=== PATIENT | male | born 1950 | race Caucasian/White ===

== ENCOUNTER 2022-09-12 13:55 | Inpatient (IN) ==
[2022-09-12] MEDS ORDERED: SODIUM CHLORIDE 0.9% 1000ML 1,000 ML IV STA (14:05)
[2022-09-12 14:32] LABS: Basophils # (auto) 0.07 K/uL (0-0.2); Basophils % (auto) 0.7 %; Eosinophils # (auto) 0.11 K/uL (0-0.50); Eosinophils % (auto) 1.1 %; Hematocrit (blood only) 44.8 % (42.0-52.0); Hemoglobin 15.5 g/dl (14.0-18.0); Immature Granulocytes # (auto) 0.07 K/uL (0.01-0.20); Immature Granulocytes % (auto) 0.7 %; Lymphocytes % (auto) 15.6 %; Mean Corpuscular Hemoglobin 31.3 pg (25.0-34.0); Mean Corpuscular Hgb Conc 34.6 g/dL (32.0-36.0); Mean Corpuscular Volume 90.5 fL (80.0-100.0); Mean Platelet Volume 9.5 fL (9.4-12.4); Monocytes # (auto) 1.27 K/uL (0.11-0.59); Monocytes % (auto) 12.4 %; Neutrophils # (auto) 7.11 K/uL (1.40-6.50); Neutrophils % (auto) 69.5 %; Platelet Count 421 K/uL (130-400); RDW Coefficient of Variation 13.4 % (11.5-14.5); RDW Standard Deviation 44.6 fL (36.4-46.3); Red Blood Count 4.95 M/uL (4.70-6.10); White Blood Count 10.23 K/ul (4.8-10.8)
--- NOTE | 2022-09-12 14:32 | Emergency Department Note ---
Impression & Plan Hypoxia, Tachycardia, URI (upper respiratory infection) ED Provider Note Provider: Chay Hammer MD DATE OF SERVICE: 09/12/2022 CHIEF COMPLAINT: Shortness of breath, cough, tachycardia HISTORY OF PRESENT ILLNESS: Patient is a 72-year-old gentleman past medical history of lung cancer status post lung resection in 2007 as well as a history of hypertension. States has a prior history of lung issues related to aging or exposure and distant history of smoking. Not on home oxygen. 10 days of illness with generalized fatigue, shortness of breath with mildly productive cough and decreased intake. Denies any significant chest pain. Denies travel. States a relative was recently ill. States some mild on and off fevers occasionally. Feeling short of breath [place] noted to be tachycardic and hypoxic and sent here for evaluation. has been using his nebulizers without real improvement of symptoms. PAST MEDICAL HISTORY: As noted above MEDICATIONS: Reviewed home medications SOCIAL HISTORY: Lives at home with , former smoker, PHYSICAL EXAM: GENERAL: alert and oriented in no acute distress on stretcher Head: normocephalic and atraumatic EYES: No injection, discharge or icterus. NECK: Trachea midline. Supple. ENT: Mucous membranes pink and moist. Pharynx without erythema or exudate LUNGS: Airway patent. No retractions. Breath sounds without significant wheeze But very diminished on the left HEART: Regular tachycardic rate and rhythm. No chest wall tenderness ABDOMEN: Soft and non-tender, without guarding or rebound. SKIN: Acyanotic, warm, dry, without rashes EXTREMITIES: Without swelling, tenderness or deformity NEUROLOGICAL: No focal deficits. No aphasia. No facial droop or slurred speech. Ambulatory. EK bpm sinus rhythm with PAC. No PVC. No acute ST segment elevation with a left axis and a QTc of 412. CONTINUOUS CARDIAC MONITORING: was ordered and showed a heart rate of 100s-120s bpm in sinus tachycardia Patient's laboratory studies and imaging reviewed. Differential includes Reactive airway disease, pneumonia, pneumothorax, COPD, CHF, infections, cardiac ischemia, pulmonary embolism, musculoskeletal, ga strointestinal, as well as other pathologies. IMPRESSION/MEDICAL DECISION MAKING: Patient hypoxic and tachycardic upon arrival. 10 days of illness. Does report he had a negative home COVID test without travel recently. Does not appear significantly swollen. History of lung issues related to age and large and distant smoking. On 2 L of oxygen to get above 90% at rest. Tachycardic. Given some IV fluid. Septic work-up including culture sent. We will complete a CT of the chest is able to evaluate for underlying PE as well as imaging to exclude pneumonia. Lactate does return not elevated which is reassuring. CBC with mild anemia and a white count of 10.2 which is a normal limits. Negative COVID flu and RSV testing. Chest x-ray per my review and radiology report shows opacification of the left lung consistent with prior lung surgery but no acute findings in the right lung or pneumothorax. No troponin elevation. No severe chemistry abnormalities with normal renal function. Procalcitonin not severely elevated. CTA of the chest with prior pneumonectomy with no evidence of pulmonary embolism per radiology. Emphysematous changes with possible developing pneumonitis in the right upper chest. Again not clearly a pneumonia. Given the short clinical history again the likelihood of a nonspecific viral illness is high causing increased oxygen requirement and shortness of breath given his compromised lungs at baseline. Given the oxygen requirement recommended further care here and the hospitalist was contacted. We will trial a DuoNeb to see if this may help with his symptoms. Discussed with the hospitalist for further care given his hypoxia and new oxygen requirement. Bio fire does returned negative. DIAGNOSIS: Hypoxia, tachycardia, URI DISPOSITION: Hospitalist will evaluate Patient was agreeable with this plan. 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 - uses loratidine and clobetasol cream Chronic obstructive pulmonary disease no Ox - uses inhalers as needed Degenerative disc disease cervical GERD (gastroesophageal reflux disease) Hyperlipidemia Hypertension Lung cancer CHEMO 05/30 - 09/2008 - Follows [facility] - q6m - recent scan 11/2021 showed spot on long - monitoring Memory loss Myocardial Infarction 1996 - severe chest pain [facility] no stents - no physical therapist aide Osteoarthritis Vertigo only in them qam - taking meclizine Surgical History History of cardiac cath 1996 post [place] - (NO STENTS) [facility] - no physical therapist aide History of colonoscopy History of esophagogastroduodenoscopy (EGD) History of herniorrhaphy History of lobectomy of lung LEFT LOBECTOMY 04/2008 d/t lung cancer History of tooth extraction Hx of vasectomy Family History Other No pertinent family history Social History Smoking Status: Former smoker Tobacco Type: Cigarettes Cigarettes Per Day: "WILL SMOKE A PUFF EVERY ONCE IN A WHILE WHEN I GET NERVOUS"; Second Hand Exposure: No; Hx Alcohol Use: No Hx Substance Use: No Preferred Language: Khmer Communication Ability: Effective 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 Beliefs That Will Affect Care: None Current Living Situation: Spouse Feels Safe at Home: Yes Assistive Devices: Glasses and Hearing Aid - Bilateral Allergies Allergies Allergy/AdvReac Type Severity Reaction Status Date / Time oxycodone Allergy Intermediate Hives Verified 09/12/22 18:46 shellfish derived Allergy Intermediate Hives Verified 09/12/22 18:46 shrimp Allergy Intermediate hives Verified 09/12/22 18:46 Home Meds Home Medications Medication Instructions Recorded Confirmed albuterol sulfate 90 mcg/actuation 2 puff inhalation QID PRN 04/01/18 09/12/22 aerosol inhaler (Ventolin HFA) Shortness Of Breath amlodipine 5 mg tablet 5 mg PO HS 04/01/18 09/12/22 atorvastatin 40 mg tablet 40 mg PO HS 04/01/18 09/12/22 lisinopril 5 mg tablet 5 mg PO HS 04/01/18 09/12/22 nitroglycerin 0.2 mg/hr 1 patch topical HS 04/01/18 09/12/22 transdermal 24 hour patch omeprazole 20 mg capsule,delayed 20 mg PO BID 04/01/18 09/12/22 release cholecalciferol (vitamin D3) 25 1,000 unit PO HS 09/21/18 09/12/22 mcg (1,000 unit) tablet (Vitamin D3) metoprolol tartrate 50 mg tablet 25 mg PO BID 09/21/18 09/12/22 meclizine 12.5 mg tablet 25 mg PO TID PRN Vertigo 01/17/22 09/12/22 trazodone 100 mg tablet 100 mg PO HS 01/17/22 09/12/22 ammonium lactate 12 % topical cream 1 applic topical HS 09/12/22 09/12/22 aspirin 81 mg tablet,delayed 81 mg PO DAILY 09/12/22 09/12/22 release benzonatate 100 mg capsule 200 mg PO TID 09/12/22 09/12/22 calcium carbonate 500 mg-vitamin 1 tab PO DAILY 09/12/22 09/12/22 D3 5 mcg (200 unit) tablet (Calcium 500 + D) clobetasol 0.05 % topical ointment 1 applic topical BID PRN dermatitis 09/12/22 09/12/22 cyclobenzaprine 10 mg tablet 10 mg PO HS PRN Muscle Pain 09/12/22 09/12/22 diclofenac sodium 1 % topical gel 2 g topical TID PRN joint pain 09/12/22 09/12/22 fluticasone 500 mcg-salmeterol 50 1 inh inhalation BID 09/12/22 09/12/22 mcg/dose blistr powdr for inhalation guaifenesin 200 mg tablet 200 mg PO Q6 PRN cough/congestion 09/12/22 09/12/22 magnesium oxide 420 mg tablet 420 mg PO DAILY 09/12/22 09/12/22 naloxone 4 mg/actuation nasal spray 4 mg intranasal UD PRN accidental 09/12/22 09/12/22 overdose pregabalin 75 mg capsule See Rx Instructions .Route .COMPLEX 09/12/22 09/12/22 tiotropium bromide 2.5 2 puff inhalation DAILY 09/12/22 09/12/22 mcg/actuation mist for inhalation Results & Data (ED) Vital Signs Vital Signs - 24 hr 09/12/22 14:03 09/12/22 14:02 09/12/22 14:02 Temperature 37.3 C Temperature Source Oral Pulse Rate 117 H Pulse Rate [Right Brachial] Pulse Rate from SpO2 Sensor Pulse Rhythm [Right Brachial] Respiratory Rate 15 Respiratory Effort / Characteristics Non-Labored Spontaneous Non-Labored Spontaneous Respiratory Depth Normal Normal Respiratory Pattern Regular Blood Pressure 132/79 Blood Pressure [Right Arm] Blood Pressure Mean 96 Blood Pressure Mean [Right Arm] Pulse Oximetry 94 94 Oxygen Delivery Method Room Air Room Air Room Air Oxygen Flow Rate 0 Sepsis New/Unexplained Change in Mental Status No Sepsis Action Taken by Nursing No Action Required 09/12/22 14:02 09/12/22 14:37 09/12/22 14:07 Temperature 37.3 C Temperature Source Oral Pulse Rate 115 H 120 H Pulse Rate [Right Brachial] 120 H Pulse Rate from SpO2 Sensor 119 H Pulse Rhythm [Right Brachial] Regular Respiratory Rate 15 16 Respiratory Effort / Characteristics Non-Labored Spontaneous Respiratory Depth Normal Respiratory Pattern Regular Blood Pressure Blood Pressure [Right Arm] 132/79 Blood Pressure Mean Blood Pressure Mean [Right Arm] 96 Pulse Oximetry 95 94 Oxygen Delivery Method Room Air Oxygen Flow Rate Sepsis New/Unexplained Change in Mental Status Sepsis Action Taken by Nursing 09/12/22 14:15 09/12/22 14:30 09/12/22 14:45 Temperature Temperature Source Pulse Rate 111 H 118 H 115 H Pulse Rate [Right Brachial] Pulse Rate from SpO2 Sensor 111 H 116 H 114 H Pulse Rhythm [Right Brachial] Respiratory Rate 16 14 16 Respiratory Effort / Characteristics Respiratory Depth Respiratory Pattern Blood Pressure Blood Pressure [Right Arm] Blood Pressure Mean Blood Pressure Mean [Right Arm] Pulse Oximetry 94 95 94 Oxygen Delivery Method Oxygen Flow Rate Sepsis New/Unexplained Change in Mental Status Sepsis Action Taken by Nursing 09/12/22 15:00 09/12/22 15:15 09/12/22 15:30 Temperature Temperature Source Pulse Rate 105 H 100 H 99 H Pulse Rate [Right Brachial] Pulse Rate from SpO2 Sensor 103 H 99 H 105 H Pulse Rhythm [Right Brachial] Respiratory Rate 16 16 15 Respiratory Effort / Characteristics Respiratory Depth Respiratory Pattern Blood Pressure Blood Pressure [Right Arm] Blood Pressure Mean Blood Pressure Mean [Right Arm] Pulse Oximetry 95 94 94 Oxygen Delivery Method Oxygen Flow Rate Sepsis New/Unexplained Change in Mental Status Sepsis Action Taken by Nursing 09/12/22 15:45 09/12/22 16:00 09/12/22 16:15 Temperature Temperature Source Pulse Rate 108 H 97 H 93 H Pulse Rate [Right Brachial] Pulse Rate from SpO2 Sensor 113 H 97 H 95 H Pulse Rhythm [Right Brachial] Respiratory Rate 15 16 17 Respiratory Effort / Characteristics Respiratory Depth Respiratory Pattern Blood Pressure Blood Pressure [Right Arm] Blood Pressure Mean Blood Pressure Mean [Right Arm] Pulse Oximetry 92 92 92 Oxygen Delivery Method Oxygen Flow Rate Sepsis New/Unexplained Change in Mental Status Sepsis Action Taken by Nursing 09/12/22 17:26 09/12/22 18:37 09/12/22 16:38 Temperature Temperature Source Pulse Rate 108 H Pulse Rate [Right Brachial] 110 H Pulse Rate from SpO2 Sensor 108 H Pulse Rhythm [Right Brachial] Respiratory Rate 15 Respiratory Effort / Characteristics Respiratory Depth Respiratory Pattern Blood Pressure Blood Pressure [Right Arm] Blood Pressure Mean Blood Pressure Mean [Right Arm] Pulse Oximetry 94 90 Oxygen Delivery Method Nasal Cannula Oxygen Flow Rate 2 Sepsis New/Unexplained Change in Mental Status Sepsis Action Taken by Nursing 09/12/22 16:45 09/12/22 17:00 09/12/22 17:30 Temperature Temperature Source Pulse Rate 107 H 82 122 H Pulse Rate [Right Brachial] Pulse Rate from SpO2 Sensor 104 H 116 H 109 H Pulse Rhythm [Right Brachial] Respiratory Rate 15 16 15 Respiratory Effort / Characteristics Respiratory Depth Respiratory Pattern Blood Pressure Blood Pressure [Right Arm] Blood Pressure Mean Blood Pressure Mean [Right Arm] Pulse Oximetry 92 95 93 Oxygen Delivery Method Oxygen Flow Rate Sepsis New/Unexplained Change in Mental Status Sepsis Action Taken by Nursing 09/12/22 17:45 09/12/22 18:00 09/12/22 18:15 Temperature Temperature Source Pulse Rate 110 H 108 H 106 H Pulse Rate [Right Brachial] Pulse Rate from SpO2 Sensor 112 H 104 H 107 H Pulse Rhythm [Right Brachial] Respiratory Rate 14 15 16 Respiratory Effort / Characteristics Respiratory Depth Respiratory Pattern Blood Pressure Blood Pressure [Right Arm] Blood Pressure Mean Blood Pressure Mean [Right Arm] Pulse Oximetry 91 91 98 Oxygen Delivery Method Oxygen Flow Rate Sepsis New/Unexplained Change in Mental Status Sepsis Action Taken by Nursing 09/12/22 18:30 09/12/22 18:45 09/12/22 19:00 Temperature Temperature Source Pulse Rate 108 H 105 H 111 H Pulse Rate [Right Brachial] Pulse Rate from SpO2 Sensor 109 H 106 H 110 H Pulse Rhythm [Right Brachial] Respiratory Rate 15 15 15 Respiratory Effort / Characteristics Respiratory Depth Respiratory Pattern Blood Pressure Blood Pressure [Right Arm] Blood Pressure Mean Blood Pressure Mean [Right Arm] Pulse Oximetry 90 92 91 Oxygen Delivery Method Oxygen Flow Rate Sepsis New/Unexplained Change in Mental Status Sepsis Action Taken by Nursing 09/12/22 19:15 Temperature Temperature Source Pulse Rate 107 H Pulse Rate [Right Brachial] Pulse Rate from SpO2 Sensor 99 H Pulse Rhythm [Right Brachial] Respiratory Rate 16 Respiratory Effort / Characteristics Respiratory Depth Respiratory Pattern Blood Pressure Blood Pressure [Right Arm] Blood Pressure Mean Blood Pressure Mean [Right Arm] Pulse Oximetry 90 Oxygen Delivery Method Oxygen Flow Rate Sepsis New/Unexplained Change in Mental Status Sepsis Action Taken by Nursing Laboratory Data 09/12/22 14:06 09/12/22 14:06 Lab Results 09/12/22 09/12/22 09/12/22 Range/Units 14:05 14:05 14:06 WBC 10.23 (4.8-10.8) K/ul RBC 4.95 (4.70-6.10) M/uL Hgb 15.5 (14.0-18.0) g/dl Hct 44.8 (42.0-52.0) % MCV 90.5 (80.0-100.0) fL MCH 31.3 (25.0-34.0) pg MCHC 34.6 (32.0-36.0) g/dL RDW Std Deviation 44.6 (36.4-46.3) fL RDW Coeff of Deng 13.4 (11.5-14.5) % Plt Count 421 H (130-400) K/uL MPV 9.5 (9.4-12.4) fL Immature Gran % (Auto) 0.7 % Neut % (Auto) 69.5 % Lymph % (Auto) 15.6 % Lipscomb % (Auto) 12.4 % Eos % (Auto) 1.1 % Baso % (Auto) 0.7 % Neut # (Auto) 7.11 H (1.40-6.50) K/uL Lymph # (Auto) 1.60 (1.2-3.4) K/uL Lipscomb # (Auto) 1.27 H (0.11-0.59) K/uL Eos # (Auto) 0.11 (0-0.50) K/uL Baso # (Auto) 0.07 (0-0.2) K/uL Immature Gran # (Auto) 0.07 (0.01-0.20) K/uL PT 11.3 (9.0-12.0) Seconds INR 1.1 (0.9-1.1) Sodium (136-145) mmol/L Potassium (3.5-5.1) mmol/L Chloride (98-107) mmol/L Carbon Dioxide (21-32) mmol/L Anion Gap (3-11) BUN (6-23) mg/dl Creatinine (0.6-1.4) mg/dl Est Cr Clr Drug Dosing Est GFR ( Amer) ml/min Est GFR (Non-Af Amer) ml/min BUN/Creatinine Ratio (10-20) Glucose (70-99(Fasting)) mg/dl Lactate (0.4-2.0) mmol/L Calcium (8.6-10.3) mg/dl Total Bilirubin (0.2-1.0) mg/dl AST (13-39) U/L ALT (7-52) U/L Alkaline Phosphatase (34-104) U/L Troponin I High Sens (0-20) pg/ml Total Protein (6.0-8.3) gm/dl Albumin (3.4-5.0) gm/dl Globulin (2.5-4.0) gm/dl Albumin/Globulin Ratio (0.9-2) Procalcitonin Cancelled Urine Color Urine Appearance (Clear) Urine pH (4.5-7.5) Ur Specific [place] (1.000-1.030) Urine Protein (Negative) Urine Glucose (UA) (Negative) Urine Ketones (Negative) Urine Blood (Negative) Urine Nitrite (Negative) Urine Bilirubin (Negative) Urine Urobilinogen (Negative) Ur Leukocyte Esterase (Negative) Adenovirus (PCR) (NotDetected) B. pertussis DNA (PCR) (NotDetected) B.parapertussis DNA PCR (NotDetected) C. pneumoniae DNA (PCR) (NotDetected) Coronavirus OC43 (PCR) (NotDetected) Coronavirus HKU1 (PCR) (NotDetected) Coronavirus 229E (PCR) (NotDetected) SARS-CoV-2 (PCR) (Negative) Coronavirus NL63 (PCR) (NotDetected) Human Metapneumovir PCR (NotDetected) Influenza Type A (PCR) (Neg) Influenza Type B (PCR) (Neg) M. pneumoniae (PCR) (NotDetected) Parainfluenza 1 (PCR) (NotDetected) Parainfluenza 2 (PCR) (NotDetected) Parainfluenza 3 (PCR) (NotDetected) Parainfluenza 4 (PCR) (NotDetected) RSV (RT-PCR) (Neg) RSV (PCR) (NotDetected) Entero/Rhino (PCR) (NotDetected) 09/12/22 09/12/22 09/12/22 Range/Units 14:06 14:06 14:18 WBC (4.8-10.8) K/ul RBC (4.70-6.10) M/uL Hgb (14.0-18.0) g/dl Hct (42.0-52.0) % MCV (80.0-100.0) fL MCH (25.0-34.0) pg MCHC (32.0-36.0) g/dL RDW Std Deviation (36.4-46.3) fL RDW Coeff of Deng (11.5-14.5) % Plt Count (130-400) K/uL MPV (9.4-12.4) fL Immature Gran % (Auto) % Neut % (Auto) % Lymph % (Auto) % [place]comb % (Auto) % Eos % (Auto) % Baso % (Auto) % Neut # (Auto) (1.40-6.50) K/uL Lymph # (Auto) (1.2-3.4) K/uL [place] # (Auto) (0.11-0.59) K/uL Eos # (Auto) (0-0.50) K/uL Baso # (Auto) (0-0.2) K/uL Immature Gran # (Auto) (0.01-0.20) K/uL PT (9.0-12.0) Seconds INR (0.9-1.1) Sodium 138 (136-145) mmol/L Potassium 3.8 (3.5-5.1) mmol/L Chloride 100 (98-107) mmol/L Carbon Dioxide 33 H (21-32) mmol/L Anion Gap 5 (3-11) BUN 8 (6-23) mg/dl Creatinine 0.68 (0.6-1.4) mg/dl Est Cr Clr Drug Dosing Not Reportable Est GFR ( Amer) 111.4 ml/min Est GFR (Non-Af Amer) 96.1 ml/min BUN/Creatinine Ratio 11.8 (10-20) Glucose 142 H (70-99(Fasting)) mg/dl Lactate 1.5 (0.4-2.0) mmol/L Calcium 9.1 (8.6-10.3) mg/dl Total Bilirubin 0.3 (0.2-1.0) mg/dl AST 21 (13-39) U/L ALT 14 (7-52) U/L Alkaline Phosphatase 95 (34-104) U/L Troponin I High Sens 9.6 (0-20) pg/ml Total Protein 5.9 L (6.0-8.3) gm/dl Albumin 3.0 L (3.4-5.0) gm/dl Globulin 2.9 (2.5-4.0) gm/dl Albumin/Globulin Ratio 1.0 (0.9-2) Procalcitonin Urine Color Urine Appearance (Clear) Urine pH (4.5-7.5) Ur Specific [place] (1.000-1.030) Urine Protein (Negative) Urine Glucose (UA) (Negative) Urine Ketones (Negative) Urine Blood (Negative) Urine Nitrite (Negative) Urine Bilirubin (Negative) Urine Urobilinogen (Negative) Ur Leukocyte Esterase (Negative) Adenovirus (PCR) (NotDetected) B. pertussis DNA (PCR) (NotDetected) B.parapertussis DNA PCR (NotDetected) C. pneumoniae DNA (PCR) (NotDetected) Coronavirus OC43 (PCR) (NotDetected) Coronavirus HKU1 (PCR) (NotDetected) Coronavirus 229E (PCR) (NotDetected) SARS-CoV-2 (PCR) NEGATIVE (Negative) Coronavirus NL63 (PCR) (NotDetected) Human Metapneumovir PCR (NotDetected) Influenza Type A (PCR) Negative (Neg) Influenza Type B (PCR) Negative (Neg) M. pneumoniae (PCR) (NotDetected) Parainfluenza 1 (PCR) (NotDetected) Parainfluenza 2 (PCR) (NotDetected) Parainfluenza 3 (PCR) (NotDetected) Parainfluenza 4 (PCR) (NotDetected) RSV (RT-PCR) Negative (Neg) RSV (PCR) (NotDetected) Entero/Rhino (PCR) (NotDetected) 09/12/22 09/12/22 09/12/22 Range/Units 14:53 17:23 18:10 WBC (4.8-10.8) K/ul RBC (4.70-6.10) M/uL Hgb (14.0-18.0) g/dl Hct (42.0-52.0) % MCV (80.0-100.0) fL MCH (25.0-34.0) pg MCHC (32.0-36.0) g/dL RDW Std Deviation (36.4-46.3) fL RDW Coeff of Deng (11.5-14.5) % Plt Count (130-400) K/uL MPV (9.4-12.4) fL Immature Gran % (Auto) % Neut % (Auto) % Lymph % (Auto) % Lipscomb % (Auto) % Eos % (Auto) % Baso % (Auto) % Neut # (Auto) (1.40-6.50) K/uL Lymph # (Auto) (1.2-3.4) K/uL [place]comb # (Auto) (0.11-0.59) K/uL Eos # (Auto) (0-0.50) K/uL Baso # (Auto) (0-0.2) K/uL Immature Gran # (Auto) (0.01-0.20) K/uL PT (9.0-12.0) Seconds INR (0.9-1.1) Sodium (136-145) mmol/L Potassium (3.5-5.1) mmol/L Chloride (98-107) mmol/L Carbon Dioxide (21-32) mmol/L Anion Gap (3-11) BUN (6-23) mg/dl Creatinine (0.6-1.4) mg/dl Est Cr Clr Drug Dosing Est GFR ( Amer) ml/min Est GFR (Non-Af Amer) ml/min BUN/Creatinine Ratio (10-20) Glucose (70-99(Fasting)) mg/dl Lactate (0.4-2.0) mmol/L Calcium (8.6-10.3) mg/dl Total Bilirubin (0.2-1.0) mg/dl AST (13-39) U/L ALT (7-52) U/L Alkaline Phosphatase (34-104) U/L Troponin I High Sens (0-20) pg/ml Total Protein (6.0-8.3) gm/dl Albumin (3.4-5.0) gm/dl Globulin (2.5-4.0) gm/dl Albumin/Globulin Ratio (0.9-2) Procalcitonin 0.06 Urine Color Yellow Urine Appearance Clear (Clear) Urine pH 7.5 (4.5-7.5) Ur Specific [place] 1.043 H (1.000-1.030) Urine Protein Negative (Negative) Urine Glucose (UA) Negative (Negative) Urine Ketones Negative (Negative) Urine Blood Negative (Negative) Urine Nitrite Negative (Negative) Urine Bilirubin Negative (Negative) Urine Urobilinogen Negative (Negative) Ur Leukocyte Esterase Negative (Negative) Adenovirus (PCR) Not Detected (NotDetected) B. pertussis DNA (PCR) Not Detected (NotDetected) B.parapertussis DNA PCR Not Detected (NotDetected) C. pneumoniae DNA (PCR) Not Detected (NotDetected) Coronavirus OC43 (PCR) Not Detected (NotDetected) Coronavirus HKU1 (PCR) Not Detected (NotDetected) Coronavirus 229E (PCR) Not Detected (NotDetected) SARS-CoV-2 (PCR) Not Detected (Negative) Coronavirus NL63 (PCR) Not Detected (NotDetected) Human Metapneumovir PCR Not Detected (NotDetected) Influenza Type A (PCR) Not Detected (Neg) Influenza Type B (PCR) Not Detected (Neg) M. pneumoniae (PCR) Not Detected (NotDetected) Parainfluenza 1 (PCR) Not Detected (NotDetected) Parainfluenza 2 (PCR) Not Detected (NotDetected) Parainfluenza 3 (PCR) Not Detected (NotDetected) Parainfluenza 4 (PCR) Not Detected (NotDetected) RSV (RT-PCR) (Neg) RSV (PCR) Not Detected (NotDetected) Entero/Rhino (PCR) Not Detected (NotDetected) Administered Medications Discontinued Medications Albuterol (Albut/Ipratrop 3mg/0.5mg Neb 3 Ml Vial) 3 ml NEB NOW STA; Protocol Stop: 09/12/22 17:57 Last Admin: 09/12/22 18:07 Dose: 3 ml Documented By: DAYNE Sodium Chloride (Nss 1000ml) 1,000 mls @ 999 mls/hr IV .Q1H1M STA Stop: 09/12/22 15:05 Last Infusion: 09/12/22 15:53 Dose: 0 mls/hr Documented By: Admin: 09/12/22 14:35 Dose: 999 mls/hr Documented By: ROCCO Ioversol (Optiray 320 500ml) 108 ml IV ONCE ONE Stop: 09/12/22 16:34 Last Admin: 09/12/22 16:34 Dose: 108 ml Documented By: VAISHALI Imaging Data Radiologist's Impression: Chest X-Ray 09/12/22 14:06 XR chest 1V portable HISTORY: Shortness of breath. COMPARISON: Chest 04/01/2018. FINDINGS: Complete opacification of the left hemithorax consistent with a prior left-sided pneumonectomy. This remains unchanged. This results in the left knee. No shift which is also unchanged. No right-sided pneumothorax. The right lung is clear. No evidence for pulmonary edema. No pleural effusions. IMPRESSION: Postsurgical changes consistent with prior left pneumonectomy. Otherwise, no acute process within the chest. ACT 112: Negative or not required by law. Electronically signed by: Dontae Corado M.D. 09/12/2022 2:41 PM Chest CTA 09/12/22 14:07 CHEST CTA for PULMONARY ARTERIES CT DOSE: 286.44 mGy.cm HISTORY: PE, hypoxia, tachy, hx lung ca TECHNIQUE: Multiaxial CT images of the chest were performed following the intravenous administration of contrast to evaluate the pulmonary arteries. Maximal intensity projection images were also obtained. A dose lowering technique was utilized adhering to the principles of ALARA. COMPARISON STUDY: Chest CTA 04/01/2018. FINDINGS: Limited views of the upper abdomen demonstrate a normal liver, spleen, and adrenal glands. Partially visualized right renal cysts are noted. Normal thyroid gland. Redemonstration of the postoperative changes consistent with a prior left pneumonectomy. There is residual fluid within the left hemithorax consistent with postoperative change. This remains unchanged. Left mediastinal shift is also unchanged. The heart is normal in size. Normal caliber esophagus. No mediastinal or hilar lymphadenopathy. No suspicious lytic or blastic osseous lesions. Postoperative changes again noted within the left ribs for prior left thoracotomy. Small amount of fluid within the distal left mainstem bronchus. Emphysema again noted within the right lung. Small focal density within the right upper lobe medially on image 235 which has slightly progressed. There are few subcentimeter right apical nodules measuring up to 4 mm. This is also slightly progressed in the interval. Right-sided bronchial wall thickening is again noted. No right-sided pneumothorax. Normal caliber thoracic aorta with no evidence for a dissection. Prior resection of the left main pulmonary artery. No filling defects within the right pulmonary arteries to suggest a pulmonary embolus. IMPRESSION: 1. Prior left pneumonectomy, unchanged. 2. No filling defects within the residual pulmonary arteries to suggest a pulmonary embolus. 3. Small patchy airspace opacity within the right upper lobe medially a few subcentimeter nodular densities within the right lung apex have progressed. This could represent a developing pneumonitis. [address] follow-up recommended to ensure resolution. 4. Emphysema again noted within the right lung. ACT 112: Negative or not required by law. Electronically signed by: Dontae Corado M.D. 09/12/2022 5:50 PM Discharge Plan Visit Data Chief Complaint: Shortness of Breath/Dyspnea Stated Complaint: HYPOXIA, TACHYCARDIA ED Provider: Chay Hammer Discharge Problem: Hypoxia, Tachycardia, URI (upper respiratory infection) Patient Disposition: Being Evaluated by Hospitalist Discharge Instructions Interventions: ED Discharge Assessment Last Done: 09/12/22 21:10 Forms Stand Alone Forms: [facility] Prescriptions Prescriptions: No Action atorvastatin 40 mg tablet 40 mg PO HS nitroglycerin 0.2 mg/hr patch 24 hour 1 patch Topical HS Rx Instructions: On at night and off in the morning amlodipine 5 mg tablet 5 mg PO HS omeprazole 20 mg capsule,delayed release(DR/EC) 20 mg PO BID lisinopril 5 mg tablet 5 mg PO HS albuterol sulfate [Ventolin HFA] 90 mcg/actuation Hfa Aerosol Inhaler 2 puff INHALATION QID PRN (Reason: Shortness Of Breath) cholecalciferol (vitamin D3) [Vitamin D3] 1,000 unit Tablet 1,000 unit PO HS metoprolol tartrate 50 mg Tablet 25 mg PO BID aspirin [Aspirin Low-Strength] 81 mg Tablet,Delayed Release (Dr/Ec) 81 mg PO DAILY benzonatate 100 mg capsule 200 mg PO TID ammonium lactate 12 % cream 1 applic TOPICAL HS Rx Instructions: apply to heels calcium carbonate-vitamin D3 [Calcium 500 + D] 500 mg-5 mcg (200 unit) Tablet 1 tab PO DAILY pregabalin 75 mg capsule See Rx Instructions .ROUTE .COMPLEX Rx Instructions: take 1 capsule(75 mg) orally in the morning and take 2 capsules (150 mg) in the evening cyclobenzaprine 10 mg tablet 10 mg PO HS PRN (Reason: Muscle Pain) clobetasol 0.05 % ointment 1 applic TOPICAL BID PRN (Reason: dermatitis) tiotropium bromide 2.5 mcg/actuation Mist 2 puff INHALATION DAILY naloxone 4 mg/actuation [place],Non-Aerosol 4 mg INTRANASAL UD PRN (Reason: accidental overdose) Rx Instructions: 1 spray in alternating nostrils once as needed guaifenesin 200 mg tablet 200 mg PO Q6 PRN (Reason: cough/congestion) magnesium oxide 420 mg tablet 420 mg PO DAILY fluticasone propion-salmeterol 500-50 mcg/dose Blister With Device 1 inh INHALATION BID diclofenac sodium 1 % Gel 2 g TOPICAL TID PRN (Reason: joint pain) Rx Instructions: apply to single elbow, wrist or hand; for hand includes palm/fingers/back of hand meclizine 12.5 mg Tablet 25 mg PO TID PRN (Reason: Vertigo) trazodone 100 mg Tablet 100 mg PO HS Referrals Referrals: Monserrat Israel PA-C [Primary Care Provider] -
--- NOTE | 2022-09-12 14:42 | XRay Report ---
XR chest 1V portable HISTORY: Shortness of breath. COMPARISON: Chest 04/01/2018. FINDINGS: Complete opacification of the left hemithorax consistent with a prior left-sided pneumonect yasmine. This remains unchanged. This results in the left knee. No shift which is also unchanged. No righ t-sided pneumothorax. The right lung is clear. No evidence for pulmonary edema. No pleural effusions. IMPRESSION: Postsurgical changes consistent with prior left pneumonectomy. Otherwise, no acute process within the chest. ACT 112: Negative or not required by law. Electronically signed by: Dontae Corado M.D. 09/12/2022 2:41 PM
[2022-09-12 15:20] LABS: INR 1.1 (0.9-1.1); Prothrombin Time 11.3 Seconds (9.0-12.0)
[2022-09-12 15:22] LABS: Influenza A virus by PCR Negative (Neg); Influenza B virus by PCR Negative (Neg); RSV by PCR Negative (Neg); SARS CoV2 RNA(COVID-19) Ceph NEGATIVE (Negative)
[2022-09-12 16:09] LABS: Troponin I High Sensitivity 9.6 pg/ml (0-20)
[2022-09-12 16:12] LABS: Anion Gap 5 (3-11); Bilirubin,Total 0.3 mg/dl (0.2-1.0); Calcium 9.1 mg/dl (8.6-10.3); Carbon Dioxide 33 mmol/L (21-32); Chloride 100 mmol/L (98-107); Potassium 3.8 mmol/L (3.5-5.1); Sodium 138 mmol/L (136-145)
[2022-09-12 16:18] LABS: Alanine Aminotransferase 14 U/L (7-52); Alkaline Phosphatase 95 U/L (34-104); Aspartate Aminotransferase 21 U/L (13-39); BUN Creatinine Ratio 11.8 (10-20); Blood Urea Nitrogen 8 mg/dl (6-23); Est GFR (African American) 111.4 ml/min; Est GFR (Non-African American) 96.1 ml/min; Globulin 2.9 gm/dl (2.5-4.0); Glucose 142 mg/dl (70-99(Fasting)); Total Protein 5.9 gm/dl (6.0-8.3)
[2022-09-12] MEDS ORDERED: OPTIRAY 320 500ml IV ONE (16:33)
--- NOTE | 2022-09-12 17:13 | Electrocardiogram Report ---
Test Reason : Blood Pressure : / mmHG Vent. Rate : 120 BPM Atrial Rate : 120 BPM P-R Int : 154 ms QRS Dur : 072 ms QT Int : 292 ms P-R-T Axes : 081 -47 040 degrees QTc Int : 412 ms Sinus tachycardia with Premature atrial complexes Left axis deviation possible Inferior infarct , age undetermined Poor R wave progression, consider anterior NV vs. lead placement vs. LVH Abnormal ECG When compared with ECG of 01-APR-2018 17:33, Premature atrial complexes are now Present Confirmed by Jose Cutler ([id number]) on 09/12/2022 5:13:18 PM Referred By: Monserrat Israel Confirmed By:Azam Cutler
[2022-09-12 17:50] LABS: Appearance Urine Clear (Clear); Bilirubin Urine Negative (Negative); Blood Urine Negative (Negative); Color Urine Yellow; Glucose Urine UA Negative (Negative); Ketones Urine Negative (Negative); Leukocyte Esterase Urine Negative (Negative); Nitrite Urine Negative (Negative); Protein Urine Negative (Negative); Specific Gravity Urine 1.043 (1.000-1.030); Urobilinogen Urine Negative (Negative); pH Urine 7.5 (4.5-7.5)
--- NOTE | 2022-09-12 17:52 | CT Scan Report ---
CHEST CTA for PULMONARY ARTERIES CT DOSE: 286.44 mGy.cm HISTORY: PE, hypoxia, tachy, hx lung ca TECHNIQUE: Multiaxial CT images of the chest were performed following the intravenous administration of contrast to evaluate the pulmonary arteries. Maximal intensity projection images were also obtaine d. A dose lowering technique was utilized adhering to the principles of ALARA. COMPARISON STUDY: Chest CTA 04/01/2018. FINDINGS: Limited views of the upper abdomen demonstrate a normal liver, spleen, and adrenal glands. Partially visualized right renal cysts are noted. Normal thyroid gland. Redemonstration of the postop erative changes consistent with a prior left pneumonectomy. There is residual fluid within the left h emithorax consistent with postoperative change. This remains unchanged. Left mediastinal shift is als o unchanged. The heart is normal in size. Normal caliber esophagus. No mediastinal or hilar lymphaden opathy. No suspicious lytic or blastic osseous lesions. Postoperative changes again noted within the left ribs for prior left thoracotomy. Small amount of fluid within the distal left mainstem bronchus. Emphysema again noted within the right lung. Small focal density within the right upper lobe mediall y on image 235 which has slightly progressed. There are few subcentimeter right apical nodules measur ing up to 4 mm. This is also slightly progressed in the interval. Right-sided bronchial wall thickeni ng is again noted. No right-sided pneumothorax. Normal caliber thoracic aorta with no evidence for a dissection. Prior resection of the left main pulmonary artery. No filling defects within the right pu lmonary arteries to suggest a pulmonary embolus. IMPRESSION: 1. Prior left pneumonectomy, unchanged. 2. No filling defects within the residual pulmonary arteries to suggest a pulmonary embolus. 3. Small patchy airspace opacity within the right upper lobe medially a few subcentimeter nodular den sities within the right lung apex have progressed. This could represent a developing pneumonitis. [address] [facility] chest CT follow-up recommended to ensure resolution. 4. Emphysema again noted within the right lung. ACT 112: Negative or not required by law. Electronically signed by: Dontae Corado M.D. 09/12/2022 5:50 PM
[2022-09-12] MEDS ORDERED: ALBUT/IPRATROP 3MG/0.5MG NEB 3 ML VIAL NEB STA (17:56)
--- NOTE | 2022-09-12 19:05 | History & Physical Report ---
Date of Service September 12, 2022 Assessment & Plan (1) Right upper lobe pneumonia: (2) Chronic obstructive pulmonary disease: (3) Acute electrocardiography changes: (4) Hypertension: Plan This is a 72 yr old M who has a significant PMH of COPD not on oxygen, agent orange exposure, hx of lung cancer s/p L lobectomy, HTN, HLD and other medical problems as below who presents to ED at referral of [facility] due to hypoxia. He sees the [facility] and was seen in clinic today and was found to be hypoxic and tachycardic so referred to ED. Patient has been experiencing lower URI symptoms for approximately 10 days now with productive purulent sputum. Although viral URI panel, COVID and RSV negative symptoms likely started as viral process and now evolving to bacterial. Acute hypoxic respiratory failure Pneumonia COPD without exacerbation hx of Lung ca s/p L lobectomy Admit to telemetry Chest CT: negative PE but worsened consolidation to RUL ? pneumonitis IV rocephin, oral azithromycin pulmonary toilet Nebs, incentive spirometer, flutter valve continue home inhalers EKG changes pt w/o acute chest pain, trop negative will cycle trop, repeat ecg in a.m. noted sinus tachycardia with PACs, possible inferior infarct and poor R wave progression. Previous EKG from 2018 did have T wave inversions in inferior leads and nonspecific T wave abnormality in anterior leads continue tele monitoring HTN continue amlodipine, lisinopril, metoprolol bp stable HLD continue statin DVT ppx: SQ lovenox FULL CODE PCP: [facility] Dispo: admit to tele A total of 75 minutes was spent with greater than 50% of that time personally viewing all current laboratory work and diagnostic imaging studies obtained in the ED. Additionally, I was able to view the patients past medication reconciliation and history with direct visualization in the patients chart. Included in the time above, a portion of that time was spent assessing the patient while discussing and collaborating with specialists, if necessary, and making medical decision making on treatment plan. All of the above was collaborated with Dr. Mehta. Please see addendum for further details. History of Present Illness Chief Complaint: Referred by [facility] due to hypoxia. Primary Care Provider: Monserrat Israel PA-C This is a 72 yr old M who has a significant PMH of COPD not on oxygen, agent orange exposure, hx of lung cancer s/p L lobectomy, HTN, HLD and other medical problems as below who presents to ED at referral of [facility] due to hypoxia. He sees the [facility] and was seen in clinic today and was found to be hypoxic and tachycardic so referred to ED. He complains of Cough x 10 days. Cough is productive and purulent. He generally feels feverish, chills, rhinorrhea, sinus congestion, and gets SOB with coughing. He has not taken his temperature to know of true fever. He denies BEAR, dizziness, lightheaded, chest pain, sob at rest, n/v/d, abd pain. Appetite has been reduced over last 10 days. He has positive sick contacts with great grandson who also had URI sx. In ED patient made hemodynamically stable but was hypoxic requiring 2 L of supplemental oxygen. His CBC and CMP was generally unremarkable. His bio fire, SARS-CoV-2 and RSV were negative. Chest CTA revealed prior left pneumonectomy, no filling defects concerning for pulmonary embolus, small patchy airspace opacity within the right upper lobe has progressed which could representing developing pneumonitis. Recommend 6-month CT chest follow-up to ensure resolution. Also noted is emphysema within the right lung. He received IV fluid and albuterol nebulizer treatment while in ED. Family members are at bedside. Allergies Allergy/AdvReac Type Severity Reaction Status Date / Time oxycodone Allergy Intermediate Hives Verified 09/12/22 18:46 shellfish derived Allergy Intermediate Hives Verified 09/12/22 18:46 shrimp Allergy Intermediate hives Verified 09/12/22 18:46 Home Medications Medication Instructions Recorded Confirmed Type albuterol sulfate 90 mcg/actuation 2 puff inhalation QID PRN 04/01/18 09/12/22 History aerosol inhaler (Ventolin HFA) Shortness Of Breath amlodipine 5 mg tablet 5 mg PO HS 04/01/18 09/12/22 History atorvastatin 40 mg tablet 40 mg PO HS 04/01/18 09/12/22 History lisinopril 5 mg tablet 5 mg PO HS 04/01/18 09/12/22 History nitroglycerin 0.2 mg/hr 1 patch topical HS 04/01/18 09/12/22 History transdermal 24 hour patch omeprazole 20 mg capsule,delayed 20 mg PO BID 04/01/18 09/12/22 History release cholecalciferol (vitamin D3) 25 1,000 unit PO HS 09/21/18 09/12/22 History mcg (1,000 unit) tablet (Vitamin D3) metoprolol tartrate 50 mg tablet 25 mg PO BID 09/21/18 09/12/22 History meclizine 12.5 mg tablet 25 mg PO TID PRN Vertigo 01/17/22 09/12/22 History trazodone 100 mg tablet 100 mg PO HS 01/17/22 09/12/22 History ammonium lactate 12 % topical cream 1 applic topical HS 09/12/22 09/12/22 History aspirin 81 mg tablet,delayed 81 mg PO DAILY 09/12/22 09/12/22 History release benzonatate 100 mg capsule 200 mg PO TID 09/12/22 09/12/22 History calcium carbonate 500 mg-vitamin 1 tab PO DAILY 09/12/22 09/12/22 History D3 5 mcg (200 unit) tablet (Calcium 500 + D) clobetasol 0.05 % topical ointment 1 applic topical BID PRN dermatitis 09/12/22 09/12/22 History cyclobenzaprine 10 mg tablet 10 mg PO HS PRN Muscle Pain 09/12/22 09/12/22 History diclofenac sodium 1 % topical gel 2 g topical TID PRN joint pain 09/12/22 09/12/22 History fluticasone 500 mcg-salmeterol 50 1 inh inhalation BID 09/12/22 09/12/22 History mcg/dose blistr powdr for inhalation guaifenesin 200 mg tablet 200 mg PO Q6 PRN cough/congestion 09/12/22 09/12/22 History magnesium oxide 420 mg tablet 420 mg PO DAILY 09/12/22 09/12/22 History naloxone 4 mg/actuation nasal spray 4 mg intranasal UD PRN accidental 09/12/22 09/12/22 History overdose pregabalin 75 mg capsule See Rx Instructions .Route .COMPLEX 09/12/22 09/12/22 History tiotropium bromide 2.5 2 puff inhalation DAILY 09/12/22 09/12/22 History mcg/actuation mist for inhalation Past Med/Surg History Medical History (Updated 09/12/22 @ 21:31 by Chay Hammer M.D.) 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 - uses loratidine and clobetasol cream Chronic obstructive pulmonary disease no Ox - uses inhalers as needed Degenerative disc disease cervical GERD (gastroesophageal reflux disease) Hyperlipidemia Hypertension Lung cancer CHEMO 05/30 - 09/2008 - Follows [facility] - q6m - recent scan 11/2021 showed spot on long - monitoring Memory loss Myocardial Infarction 1996 - severe chest pain - life lighted to [facility] - Cardiac Cath - no stents - 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 Osteoarthritis Vertigo only in them qam - taking meclizine Surgical History History of cardiac cath 1996 post NM - (NO STENTS) [facility] - 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 History of colonoscopy History of esophagogastroduodenoscopy (EGD) History of herniorrhaphy History of lobectomy of lung LEFT LOBECTOMY 04/2008 d/t lung cancer History of tooth extraction Hx of vasectomy Family History Other No pertinent family history Social History Smoking Status: Former smoker Tobacco Type: Cigarettes Cigarettes Per Day: "WILL SMOKE A PUFF EVERY ONCE IN A WHILE WHEN I GET NERVOUS"; Second Hand Exposure: No; Hx Alcohol Use: No Hx Substance Use: No Preferred Language: Setswana Communication Ability: Effective Bathhouse Keeper Required: No Beliefs That Will Affect Care: None Current Living Situation: Spouse Feels Safe at Home: Yes Assistive Devices: Glasses and Hearing Aid - Bilateral Review of Systems Review of Systems: All systems reviewed & are unremarkable except as noted in HPI & below Physical Exam Physical Exam: Please refer to Dr. Mehta addendum for physical exam findings. Results & Data Results & Data Vital Signs (Past 12 Hours) Vital Signs Temp Pulse Pulse Resp BP BP Pulse Ox 09/12/22 18:37 108 H 09/12/22 17:26 110 H 15 94 09/12/22 16:15 93 H 17 92 09/12/22 16:00 97 H 16 92 09/12/22 15:45 108 H 15 92 09/12/22 15:30 99 H 15 94 09/12/22 15:15 100 H 16 94 09/12/22 15:00 105 H 16 95 09/12/22 14:45 115 H 16 94 09/12/22 14:30 118 H 14 95 09/12/22 14:15 111 H 16 94 09/12/22 14:07 120 H 16 94 09/12/22 14:37 115 H 09/12/22 14:02 37.3 C 120 H 15 132/79 95 09/12/22 14:02 94 09/12/22 14:02 09/12/22 14:03 37.3 C 117 H 15 132/79 94 O2 Del Method O2 Flow Rate 09/12/22 18:37 09/12/22 17:26 Nasal Cannula 2 09/12/22 16:15 09/12/22 16:00 09/12/22 15:45 09/12/22 15:30 09/12/22 15:15 09/12/22 15:00 09/12/22 14:45 09/12/22 14:30 09/12/22 14:15 09/12/22 14:07 09/12/22 14:37 09/12/22 14:02 Room Air 09/12/22 14:02 Room Air 0 09/12/22 14:02 Room Air 09/12/22 14:03 Room Air Diagnostic Findings Chest X-Ray 09/12/22 14:06 XR chest 1V portable HISTORY: Shortness of breath. COMPARISON: Chest 04/01/2018. FINDINGS: Complete opacification of the left hemithorax consistent with a prior left-sided pneumonectomy. This remains unchanged. This results in the left knee. No shift which is also unchanged. No right-sided pneumothorax. The right lung is clear. No evidence for pulmonary edema. No pleural effusions. IMPRESSION: Postsurgical changes consistent with prior left pneumonectomy. Otherwise, no acute process within the chest. ACT 112: Negative or not required by law. Electronically signed by: Dontae Corado M.D. 09/12/2022 2:41 PM Chest CTA 09/12/22 14:07 CHEST CTA for PULMONARY ARTER[address] CT DOSE: 286.44 mGy.cm HISTORY: PE, hypoxia, tachy, hx lung ca TECHNIQUE: Multiaxial CT images of the chest were performed following the intravenous administration of contrast to evaluate the pulmonary arteries. Maximal intensity projection images were also obtained. A dose lowering technique was utilized adhering to the principles of ALARA. COMPARISON STUDY: Chest CTA 04/01/2018. FINDINGS: Limited views of the upper abdomen demonstrate a normal liver, spleen, and adrenal glands. Partially visualized right renal cysts are noted. Normal thyroid gland. Redemonstration of the postoperative changes consistent with a prior left pneumonectomy. There is residual fluid within the left hemithorax consistent with postoperative change. This remains unchanged. Left mediastinal shift is also unchanged. The heart is normal in size. Normal caliber esophagus. No mediastinal or hilar lymphadenopathy. No suspicious lytic or blastic osseous lesions. Postoperative changes again noted within the left ribs for prior left thoracotomy. Small amount of fluid within the distal left mainstem bronchus. Emphysema again noted within the right lung. Small focal density within the right upper lobe medially on image 235 which has slightly progressed. There are few subcentimeter right apical nodules measuring up to 4 mm. This is also slight ly progressed in the interval. Right-sided bronchial wall thickening is again noted. No right-sided pneumothorax. Normal caliber thoracic aorta with no evidence for a dissection. Prior resection of the left main pulmonary artery. No filling defects within the right pulmonary arteries to suggest a pulmonary embolus. IMPRESSION: 1. Prior left pneumonectomy, unchanged. 2. No filling defects within the residual pulmonary arteries to suggest a pulmonary embolus. 3. Small patchy airspace opacity within the right upper lobe medially a few subcentimeter nodular densities within the right lung apex have progressed. This could represent a developing pneumonitis. [address] follow-up recommended to ensure resolution. 4. Emphysema again noted within the right lung. ACT 112: Negative or not required by law. Electronically signed by: Dontae Corado M.D. 09/12/2022 5:50 PM Medications Administered Medication List Discontinued Medications Albuterol (Albut/Ipratrop 3mg/0.5mg Neb 3 Ml Vial) 3 ml NEB NOW STA; Protocol Stop: 09/12/22 17:57 Last Admin: 09/12/22 18:07 Dose: 3 ml Documented By: DAYNE Sodium Chloride (Nss 1000ml) 1,000 mls @ 999 mls/hr IV .Q1H1M STA Stop: 09/12/22 15:05 Last Infusion: 09/12/22 15:53 Dose: 0 mls/hr Documented By: Admin: 09/12/22 14:35 Dose: 999 mls/hr Documented By: ROCCO Ioversol (Optiray 320 500ml) 108 ml IV ONCE ONE Stop: 09/12/22 16:34 Last Admin: 09/12/22 16:34 Dose: 108 ml Documented By: VAISHALI ECG Rate (beats per minute): 120 Rhythm: sinus tachycardia Additional Comments: Poor R wave progression, PACs noted COVID-19 Results Results COVID-19 Adm Lab Results: RBC 4.95 M/uL (4.70-6.10) 09/12/22 WBC 10.23 K/ul (4.8-10.8) 09/12/22 Hgb 15.5 g/dl (14.0-18.0) 09/12/22 Hct 44.8 % (42.0-52.0) 09/12/22 Plt Count 421 K/uL (130-400) H 09/12/22 Neutrophils (%) (Auto) 69.5 % 09/12/22 Lymphocytes (%) (Auto) 15.6 % 09/12/22 Monocytes # (Auto) 1.27 K/uL (0.11-0.59) H 09/12/22 Eosinophils # (Auto) 0.11 K/uL (0-0.50) 09/12/22 Immature Granulocyte % (Auto) 0.7 % 09/12/22 Neutrophils # (Auto) 7.11 K/uL (1.40-6.50) H 09/12/22 Lymphocytes # (Auto) 1.60 K/uL (1.2-3.4) 09/12/22 Monocytes # (Auto) 1.27 K/uL (0.11-0.59) H 09/12/22 Eosinophils # (Auto) 0.11 K/uL (0-0.50) 09/12/22 Basophils # (Auto) 0.07 K/uL (0-0.2) 09/12/22 Immature Granulocyte # (Auto) 0.07 K/uL (0.01-0.20) 3 Na 138 mmol/L (136-145) 09/12/22 K 3.8 mmol/L (3.5-5.1) 09/12/22 Cl 100 mmol/L (98-107) 09/12/22 CO2 33 mmol/L (21-32) H 09/12/22 Anion Gap 5 (3-11) 09/12/22 BUN 8 mg/dl (6-23) 09/12/22 Creatinine 0.68 mg/dl (0.6-1.4) 09/12/22 BUN/Creatinine Ratio 11.8 (10-20) 09/12/22 Glucose Level 142 mg/dl (70-99(Fasting)) H 09/12/22 Ca 9.1 mg/dl (8.6-10.3) 09/12/22 Total Bilirubin 0.3 mg/dl (0.2-1.0) 09/12/22 AST/SGOT 21 U/L (13-39) 09/12/22 ALT/SGPT 14 U/L (7-52) 09/12/22 Alkaline Phosphatase 95 U/L (34-104) 09/12/22 Total Protein 5.9 gm/dl (6.0-8.3) L 09/12/22 Albumin 3.0 gm/dl (3.4-5.0) L 09/12/22 Globulin 2.9 gm/dl (2.5-4.0) 09/12/22 Albumin/Globulin Ratio 1.0 (0.9-2) 09/12/22 Procalcitonin 0.06 ng/ml (0-0.5) 09/12/22 INR 1.1 (0.9-1.1) 09/12/22 Adenovirus (PCR) Not Detected (NotDetected) 09/12/22 B. parapertussis DNA (PCR) Not Detected (NotDetected) 08/22 09/12 B. pertussis DNA (PCR) Not Detected (NotDetected) 09/12/22 C. pneumoniae DNA (PCR) Not Detected (NotDetected) 3 Coronavirus Type OC43 (PCR) Not Detected (NotDetected) Coronavirus Type HKU1 (PCR) Not Detected (NotDetected) Coronavirus Type 229E (PCR) Not Detected (NotDetected) COVID-19 PCR Not Detected (NotDetected) 09/12/22 Coronavirus Type NL63 (PCR) Not Detected (NotDetected) Human Metapneumovirus (PCR) Not Detected (NotDetected) Influenza Virus Type A (PCR) Not Detected (NotDetected) Influenza Virus Type B (PCR) Not Detected (NotDetected) M. pneumoniae (PCR) Not Detected (NotDetected) 09/12/22 Parainfluenza Type 1 (PCR) Not Detected (NotDetected) 08/22 09/12 Parainfluenza Type 2 (PCR) Not Detected (NotDetected) 08/22 09/12 Parainfluenza Type 3 (PCR) Not Detected (NotDetected) 08/22 09/12 Parainfluenza Type 4 (PCR) Not Detected (NotDetected) 08/22 09/12 RSV (PCR) Not Detected (NotDetected) 09/12/22 Enterovirus/Rhinovirus (PCR) Not Detected (NotDetected) Chest X-Ray 09/12/22 Code Status & VTE Plan Code Status FULL CODE Supervising Physician Co-Signing Physician Notes History and physical exam performed by me. History notable for 72-year-old man with history of COPD but not on oxygen, agent orange exposure, lung cancer status post left lobectomy, hypertension who was referred from his PCPs office at the [facility] to the hospital for hypoxia. Patient reports cough for the past 10 days, productive of greenish sputum. Cough is associated with nausea, shortness of breath and abdominal pain with coughing bouts Reported rhinorrhea and feeling feverish Reported chills and anorexia. Reported that sick contacts from family who had a cold. Was noted to be hypoxic in PCPs office and sent to the ER. On exam, General: Elderly man, no acute distress Eyes: PERRL, conjunctivae normal, not pale, anicteric sclerae, EOM intact bilaterally ENMT: External ear and nose normal, oropharynx normal Respiratory: Normal respiratory effort, no respiratory distress, on nasal cannula, +cough, diminished breath sounds, scattered rhonchi Cardiovascular: RRR S1 S2 Gastrointestinal (Abdomen): Abdomen is not distended, soft, non-tender to palpation, no guarding, no palpable hepatosplenomegaly, normal bowel sounds Musculoskeletal: No pedal edema Neurologic: Alert and oriented x 3, No focal weakness, sensation grossly intact Psychiatric: Euthymic affect Labs notable for platelet count of 421 Chest x-ray showed postsurgical changes with prior left pneumonectomy CT angio of the chest did not show any PE but noted a small patchy airspace opacity within the right upper lobe medially, diffuse subcentimeter nodular densities within the right lung apex has progressed which could represent a developing pneumonitis. Acute respiratory failure with hypoxia Pneumonia Continue oxygen supplementation Ceftriaxone azithromycin Give nebs Antitussives with guaifenesin scheduled and then as needed tessalon perrles EKG noted sinus tachycardia with PACs, possible inferior infarct and poor R wave progression. Previous EKG from 2018 did have T wave inversions in inferior leads and nonspecific T wave abnormality in anterior leads. We will get troponin and keep on telemetry. Continue home meds Other plans as detailed by Heaven Norwood PA-C
[2022-09-12 19:10] LABS: Adenovirus PCR Not Detected (NotDetected); Bordetella parapertussis PCR Not Detected (NotDetected); Bordetella pertussis PCR Not Detected (NotDetected); Chlamydia pneumoniae PCR Not Detected (NotDetected); Coronavirus 229E PCR Not Detected (NotDetected); Coronavirus CoV-2 (COVID19)PCR Not Detected (NotDetected); Coronavirus HKU1 PCR Not Detected (NotDetected); Coronavirus NL63 PCR Not Detected (NotDetected); Coronavirus OC43PCR Not Detected (NotDetected); Human Metapneumovirus PCR Not Detected (NotDetected); Influenza A PCR Not Detected (NotDetected); Influenza B PCR Not Detected (NotDetected); Mycoplasma pneumoniae PCR Not Detected (NotDetected); Parainfluenza Virus 1 PCR Not Detected (NotDetected); Parainfluenza Virus 2 PCR Not Detected (NotDetected); Parainfluenza Virus 3 PCR Not Detected (NotDetected); Parainfluenza Virus 4 PCR Not Detected (NotDetected); Respiratory Syncytial VirusPCR Not Detected (NotDetected); Rhinovirus/Enterovirus PCR Not Detected (NotDetected)
[2022-09-12] MEDS ORDERED: MAGNESIUM HYDROXIDE SUSP 30 ML UDC PO PRN (21:44)
[2022-09-12] MEDS ORDERED: ACETAMINOPHEN 325 MG TAB PO PRN (21:44)
[2022-09-12] MEDS ORDERED: FLUTICASONE/SALMETEROL (ADVAIR) 500/50 INH 14 PUFF INH SCH (21:44)
[2022-09-12] MEDS ORDERED: ONDANSETRON INJ 2 MG/ML 2 ML VIAL IV PRN (21:44)
[2022-09-12] MEDS ORDERED: ALUMINUM/MAGNESIUM SUSP 30 ML UDC PO PRN (21:44)
[2022-09-12] MEDS ORDERED: POLYETHYLENE (MIRALAX) 17 GM PACK PO PRN (21:44)
[2022-09-12] MEDS ORDERED: ALBUT/IPRATROP 3MG/0.5MG NEB 3 ML VIAL NEB PRN (22:00)
[2022-09-12] MEDS: FLUTICASONE/VILANTEROL 100/25MCG 14 PUFFS/INHALER INH SCH (22:33)
[2022-09-12] MEDS: guaiFENesin 600 MG TABCR PO SCH (22:41)
[2022-09-12] MEDS: METOPROLOL TARTRATE 25 MG TAB PO SCH (22:42)
[2022-09-12] MEDS: AZITHROMYCIN 250 MG TAB PO SCH (22:42)
[2022-09-12] MEDS: ATORVASTATIN 40 MG TAB PO SCH (22:43)
[2022-09-12] MEDS: lisinopril 5 MG TAB PO SCH (22:43)
[2022-09-12] MEDS: amLODIPine BESYLATE 5 MG TAB PO SCH (22:43)
[2022-09-12] MEDS: traZODone HCL 100 MG TAB PO SCH (22:44)
[2022-09-12] MEDS: NITROGLYCERIN 0.2 MG/HR PATCH TD SCH (22:45)
[2022-09-12] MEDS: PANTOprazole 40 MG TAB PO SCH (22:45)
[2022-09-12] MEDS: AMMONIUM LACTATE 12% LOTION 225 GM BTL EXT SCH (22:46)
[2022-09-12] MEDS: PREGABALIN 75 MG CAP PO SCH (22:49)
[2022-09-12] MEDS: BENZONATATE 100 MG CAPSULE PO PRN (22:49)
[2022-09-12] MEDS: cefTRIAXone SODIUM 2,000 MG in DEXTROSE 5% 50 ML IV SCH (22:50)
[2022-09-12] MEDS: CHOLECALCIFEROL 1,000 UNITS 25 MCG TAB PO SCH (22:53)
[2022-09-12] MEDS: ALBUTEROL 0.083% NEBU SOLN 3 ML VIAL NEB PRN (22:55)
[2022-09-12] MEDS: ALBUT/IPRATROP 3MG/0.5MG NEB 3 ML VIAL NEB SCH (22:55)
[2022-09-12] MEDS: ENOXAPARIN INJ 40 MG/0.4 ML SYR SQ SCH (23:39)
[2022-09-13] MEDS: ALBUT/IPRATROP 3MG/0.5MG NEB 3 ML VIAL NEB SCH ×2 (01:00→07:05)
[2022-09-13 03:13] LABS: Basophils # (auto) 0.08 K/uL (0-0.2); Basophils % (auto) 0.8 %; Eosinophils # (auto) 0.24 K/uL (0-0.50); Eosinophils % (auto) 2.4 %; Immature Granulocytes # (auto) 0.06 K/uL (0.01-0.20); Immature Granulocytes % (auto) 0.6 %; Lymphocytes # (auto) 1.79 K/uL (1.2-3.4); Lymphocytes % (auto) 17.8 %; Mean Corpuscular Hemoglobin 31.2 pg (25.0-34.0); Mean Corpuscular Hgb Conc 34.2 g/dL (32.0-36.0); Mean Corpuscular Volume 91.1 fL (80.0-100.0); Mean Platelet Volume 9.3 fL (9.4-12.4); Monocytes % (auto) 15.9 %; Neutrophils # (auto) 6.29 K/uL (1.40-6.50); Neutrophils % (auto) 62.5 %; Platelet Count 446 K/uL (130-400); RDW Coefficient of Variation 13.4 % (11.5-14.5); RDW Standard Deviation 45.3 fL (36.4-46.3); Red Blood Count 4.17 M/uL (4.70-6.10); White Blood Count 10.06 K/ul (4.8-10.8)
[2022-09-13 03:33] LABS: Albumin Level 2.8 gm/dl (3.4-5.0); BUN Creatinine Ratio 6.1 (10-20); Bilirubin,Total 0.3 mg/dl (0.2-1.0); Calcium 8.7 mg/dl (8.6-10.3); Est GFR (African American) 112.7 ml/min; Est GFR (Non-African American) 97.3 ml/min; Globulin 2.8 gm/dl (2.5-4.0); Magnesium 1.6 mg/dl (1.7-2.4); Potassium 3.7 mmol/L (3.5-5.1); Total Protein 5.6 gm/dl (6.0-8.3)
[2022-09-13] MEDS: CALCIUM 600MG + VIT D 400 IU TAB PO SCH (08:00)
[2022-09-13] MEDS: ASPIRIN 81 MG ECTAB PO SCH (08:00)
[2022-09-13] MEDS: MAGNESIUM OXIDE 400 MG TAB PO SCH (08:01)
[2022-09-13] MEDS: UMECLIDINIUM BROMIDE 62.5MCG/BLISTER 7 PUFFS/INHALER INH SCH (08:01)
[2022-09-13] MEDS: PANTOprazole 40 MG TAB PO SCH ×2 (08:01→22:14)
[2022-09-13] MEDS: METOPROLOL TARTRATE 25 MG TAB PO SCH ×2 (08:01→22:15)
[2022-09-13] MEDS: guaiFENesin 600 MG TABCR PO SCH ×2 (08:01→22:14)
[2022-09-13] MEDS: FLUTICASONE/VILANTEROL 100/25MCG 14 PUFFS/INHALER INH SCH (08:02)
[2022-09-13] MEDS: PREGABALIN 75 MG CAP PO SCH ×2 (08:07→22:13)
[2022-09-13] MEDS ORDERED: MAGNESIUM SULFATE / D5W 1 GM/100 ML BAG IV ONE (08:21)
[2022-09-13 08:35] LABS: Estimated Average Glucose 117 mg/dl; Hemoglobin A1C 5.7 % (4.5-5.6)
[2022-09-13] MEDS ORDERED: NON-FORMULARY MEDICATION (Tiotropium Bromide 2.5 mcg/actuation Mist) INH SCH (09:00)
--- NOTE | 2022-09-13 11:38 | Electrocardiogram Report ---
Test Reason : Blood Pressure : / mmHG Vent. Rate : 091 BPM Atrial Rate : 091 BPM P-R Int : 162 ms QRS Dur : 076 ms QT Int : 360 ms P-R-T Axes : 076 -26 030 degrees QTc Int : 442 ms Normal sinus rhythm Low voltage QRS Poor R wave progression, consider anterior SD vs. lead placement vs. LVH Borderline ECG When compared with ECG of 12-SEP-2022 14:01, Premature atrial complexes are no longer Present Criteria for Inferior infarct are no longer Present Nonspecific T wave abnormality has replaced inverted T waves in Anterior leads Confirmed by Jose Cutler ([id number]) on 09/13/2022 11:38:11 AM Referred By: Monserrat Israel Confirmed By:Azam Cutler
--- NOTE | 2022-09-13 17:01 | Hospitalist Progress Note ---
Date of Service September 13, 2022 Assessment & Plan (1) Right upper lobe pneumonia: (2) Chronic obstructive pulmonary disease: (3) Acute electrocardiography changes: (4) Hypertension: Plan This is a 72 yr old M who has a significant PMH of COPD not on oxygen, agent orange exposure, hx of lung cancer s/p L lobectomy, HTN, HLD and other medical problems as below who presents to ED at referral of [place] clinic due to hypoxia. He sees the [place] and was seen in clinic today and was found to be hypoxic and tachycardic so referred to ED. Patient has been experiencing lower URI symptoms for approximately 10 days now with productive purulent sputum. Although viral URI panel, COVID and RSV negative symptoms likely started as viral process and now evolving to bacterial. Acute hypoxic respiratory failure Pneumonia COPD without exacerbation hx of Lung ca s/p L lobectomy Chest CT: negative PE but worsened consolidation to RUL ? pneumonitis Currently on IV rocephin, oral azithromycin Continue pulmonary toilet, nebulizer treatment, incentive spirometer, flutter valve continue home inhalers Continue oxygen supplement We will consider two-step exercise on discharge EKG changes Troponin x3 negative. Previous EKG from 2018 did have T wave inversions in inferior leads and nonspecific T wave abnormality in anterior leads Denies any chest pain Continue monitor closely Hypomagnesemia Magnesium 1.6 Mag replaced Continue monitor electrolyte HTN continue amlodipine, lisinopril, metoprolol bp stable HLD continue statin DVT ppx: SQ lovenox FULL CODE Disposition We will discharge once medically stable Admission and Anticipated Discharge Date Admission Date: September 12, 2022 Subjective Patient was seen and evaluated for follow-up of shortness of breath Lying in bed no acute distress with at bedside Patient said his breathing improved Denies any chest pain, palpitation, dizziness,fever Review of Systems Review of Systems: All systems reviewed & are unremarkable except as noted in Subjective Physical Exam Physical Exam: General- No acute distress Head- atraumatic Eyes- PERRL, EOMI, ENT- oropharynx clear Neck- supple, no JVD Lungs- diminished BS Heart- regular rhythm; no murmur Abdomen- normal bowel sounds, soft, nontender Extremities- no calf tenderness Neuro- alert, oriented x 3; PERRL, EOMI; no facial palsy; no dysarthria Skin- warm & dry Results & Data Results & Data Vital Signs (Past 12 Hours) Vital Signs Temp Pulse Pulse Resp BP Pulse Ox O2 Del Method 09/13/22 16:16 98 H 09/13/22 16:09 36.6 C 107 H 21 113/75 91 Nasal Cannula 09/13/22 11:15 36.4 C L 87 20 109/71 91 Nasal Cannula 09/13/22 09:48 Nasal Cannula 09/13/22 07:58 36.7 C 111 H 18 121/69 92 Nasal Cannula 09/13/22 07:55 36.4 C L 114 H 20 111/70 91 Room Air 09/13/22 07:22 101 H 09/13/22 07:05 107 H 18 90 Nasal Cannula O2 Flow Rate 09/13/22 16:16 09/13/22 16:09 2 09/13/22 11:15 2 09/13/22 09:48 2 09/13/22 07:58 5 09/13/22 07:55 2 09/13/22 07:22 09/13/22 07:05 2
[2022-09-13] MEDS: NITROGLYCERIN 0.2 MG/HR PATCH TD SCH (22:14)
[2022-09-13] MEDS: lisinopril 5 MG TAB PO SCH (22:15)
[2022-09-13] MEDS: ATORVASTATIN 40 MG TAB PO SCH (22:15)
[2022-09-13] MEDS: amLODIPine BESYLATE 5 MG TAB PO SCH (22:15)
[2022-09-13] MEDS: traZODone HCL 100 MG TAB PO SCH (22:15)
[2022-09-13] MEDS: CHOLECALCIFEROL 1,000 UNITS 25 MCG TAB PO SCH (22:16)
[2022-09-13] MEDS: AMMONIUM LACTATE 12% LOTION 225 GM BTL EXT SCH (22:16)
[2022-09-13] MEDS: BENZONATATE 100 MG CAPSULE PO PRN (22:19)
[2022-09-13] MEDS: cefTRIAXone SODIUM 2,000 MG in DEXTROSE 5% 50 ML IV SCH (22:20)
[2022-09-13] MEDS: AZITHROMYCIN 250 MG TAB PO SCH (23:18)
[2022-09-13] MEDS: ENOXAPARIN INJ 40 MG/0.4 ML SYR SQ SCH (23:18)
[2022-09-14] MEDS ORDERED: guaiFENesin/CODEINE 100MG/10MG 5ML UDC PO STA (01:48)
[2022-09-14 06:24] LABS: BUN Creatinine Ratio 5.3 (10-20); Calcium 8.5 mg/dl (8.6-10.3); Creatinine Clr Calc Pharmacy 75.6 ml/min; Est GFR (Non-African American) 92.3 ml/min; Magnesium 1.7 mg/dl (1.7-2.4); Potassium 4.1 mmol/L (3.5-5.1)
[2022-09-14] MEDS: SODIUM CHLOR 7% 4 ML NEB NEB SCH ×2 (07:28→20:05)
[2022-09-14] MEDS: PANTOprazole 40 MG TAB PO SCH ×2 (07:54→21:04)
[2022-09-14] MEDS: METOPROLOL TARTRATE 25 MG TAB PO SCH ×2 (07:54→21:04)
[2022-09-14] MEDS: MAGNESIUM OXIDE 400 MG TAB PO SCH (07:54)
[2022-09-14] MEDS: CALCIUM 600MG + VIT D 400 IU TAB PO SCH (07:54)
[2022-09-14] MEDS: ASPIRIN 81 MG ECTAB PO SCH (07:55)
[2022-09-14] MEDS: FLUTICASONE/VILANTEROL 100/25MCG 14 PUFFS/INHALER INH SCH (07:55)
[2022-09-14] MEDS: guaiFENesin 600 MG TABCR PO SCH (07:55)
[2022-09-14] MEDS: UMECLIDINIUM BROMIDE 62.5MCG/BLISTER 7 PUFFS/INHALER INH SCH (07:55)
[2022-09-14] MEDS: PREGABALIN 75 MG CAP PO SCH ×2 (07:58→21:13)
[2022-09-14] MEDS: BENZONATATE 100 MG CAPSULE PO PRN (14:09)
[2022-09-14] MEDS ORDERED: guaiFENesin SUGAR FREE 200 MG/10 ML UDC PO PRN (14:35)
--- NOTE | 2022-09-14 17:38 | Hospitalist Progress Note ---
Date of Service September 14, 2022 Assessment & Plan (1) Right upper lobe pneumonia: (2) Chronic obstructive pulmonary disease: (3) Acute electrocardiography changes: (4) Hypertension: Plan This is a 72 yr old M who has a significant PMH of COPD not on oxygen, agent orange exposure, hx of lung cancer s/p L lobectomy, HTN, HLD and other medical problems as below who presents to ED at referral of [place] clinic due to hypoxia. He sees the [place] and was seen in clinic today and was found to be hypoxic and tachycardic so referred to ED. Patient has been experiencing lower URI symptoms for approximately 10 days now with productive purulent sputum. Although viral URI panel, COVID and RSV negative symptoms likely started as viral process and now evolving to bacterial. Acute hypoxic respiratory failure Pneumonia COPD without exacerbation hx of Lung ca s/p L lobectomy Chest CT: negative PE but worsened consolidation to RUL ? pneumonitis blood cx no growth sputum cx pending Currently on IV rocephin, oral azithromycin Continue pulmonary toilet, nebulizer treatment, incentive spirometer, flutter valve continue home inhalers Continue oxygen supplement We will consider two-step exercise on discharge EKG changes Troponin x3 negative. Previous EKG from 2018 did have T wave inversions in inferior leads and nonspecific T wave abnormality in anterior leads Denies any chest pain Continue monitor closely Hypomagnesemia Magnesium 1.7 Continue monitor electrolyte HTN continue amlodipine, lisinopril, metoprolol bp stable HLD continue statin DVT ppx: SQ lovenox FULL CODE Disposition We will discharge once medically stable Admission and Anticipated Discharge Date Admission Date: September 12, 2022 Subjective Patient was seen and examined for follow-up of shortness of breath Lying in bed no acute distress with at bedside He said that he started to bring some phlegm Denies any chest pain, palpitation, dizziness,fever Review of Systems Review of Systems: All systems reviewed & are unremarkable except as noted in Subjective Physical Exam Physical Exam: General- No acute distress Head- atraumatic Eyes- PERRL, EOMI, ENT- oropharynx clear Neck- supple, no JVD Lungs- diminished BS Heart- regular rhythm; no murmur Abdomen- normal bowel sounds, soft, nontender Extremities- no calf tenderness Neuro- alert, oriented x 3; PERRL, EOMI; no facial palsy; no dysarthria Skin- warm & dry Results & Data Results & Data Vital Signs (Past 12 Hours) Vital Signs Temp Pulse Pulse Resp BP Pulse Ox O2 Del Method 09/14/22 15:41 36.6 C 86 18 114/72 92 Nasal Cannula 09/14/22 12:43 91 Nasal Cannula 09/14/22 12:42 81 L Room Air 09/14/22 11:25 36.7 C 82 18 99/61 L 93 Nasal Cannula 09/14/22 10:44 93 Nasal Cannula 09/14/22 10:44 84 L Nasal Cannula 09/14/22 10:02 Nasal Cannula 09/14/22 08:22 36.4 C L 106 H 18 126/78 92 Nasal Cannula 09/14/22 07:29 108 H 18 93 Nasal Cannula 09/14/22 07:13 85 O2 Flow Rate 09/14/22 15:41 2 09/14/22 12:43 2 09/14/22 12:42 09/14/22 11:25 3 09/14/22 10:44 3 09/14/22 10:44 1 09/14/22 10:02 2 09/14/22 08:22 2 09/14/22 07:29 4 09/14/22 07:13
[2022-09-14] MEDS: guaiFENesin SUGAR FREE 200 MG/10 ML UDC PO SCH ×2 (19:21→22:39)
[2022-09-14] MEDS: NITROGLYCERIN 0.2 MG/HR PATCH TD SCH (21:03)
[2022-09-14] MEDS: AZITHROMYCIN 250 MG TAB PO SCH (21:03)
[2022-09-14] MEDS: lisinopril 5 MG TAB PO SCH (21:03)
[2022-09-14] MEDS: traZODone HCL 100 MG TAB PO SCH (21:05)
[2022-09-14] MEDS: amLODIPine BESYLATE 5 MG TAB PO SCH (21:05)
[2022-09-14] MEDS: ATORVASTATIN 40 MG TAB PO SCH (21:05)
[2022-09-14] MEDS: CHOLECALCIFEROL 1,000 UNITS 25 MCG TAB PO SCH (21:05)
[2022-09-14] MEDS: AMMONIUM LACTATE 12% LOTION 225 GM BTL EXT SCH (21:14)
[2022-09-14] MEDS: cefTRIAXone SODIUM 2,000 MG in DEXTROSE 5% 50 ML IV SCH (22:38)
[2022-09-14] MEDS: ENOXAPARIN INJ 40 MG/0.4 ML SYR SQ SCH (22:38)
[2022-09-15] MEDS: guaiFENesin SUGAR FREE 200 MG/10 ML UDC PO SCH ×4 (02:07→20:30)
[2022-09-15] MEDS: SODIUM CHLOR 7% 4 ML NEB NEB SCH ×2 (07:16→19:15)
[2022-09-15] MEDS: ASPIRIN 81 MG ECTAB PO SCH (08:17)
[2022-09-15] MEDS: UMECLIDINIUM BROMIDE 62.5MCG/BLISTER 7 PUFFS/INHALER INH SCH (08:18)
[2022-09-15] MEDS: CALCIUM 600MG + VIT D 400 IU TAB PO SCH (08:18)
[2022-09-15] MEDS: FLUTICASONE/VILANTEROL 100/25MCG 14 PUFFS/INHALER INH SCH (08:18)
[2022-09-15] MEDS: PANTOprazole 40 MG TAB PO SCH ×2 (08:18→20:29)
[2022-09-15] MEDS: PREGABALIN 75 MG CAP PO SCH ×2 (08:18→20:27)
[2022-09-15] MEDS: METOPROLOL TARTRATE 25 MG TAB PO SCH ×2 (08:18→20:27)
[2022-09-15] MEDS: MAGNESIUM OXIDE 400 MG TAB PO SCH (08:18)
[2022-09-15] MEDS ORDERED: predniSONE 20 MG TAB PO STA (10:49)
--- NOTE | 2022-09-15 16:49 | Hospitalist Progress Note ---
Date of Service September 15, 2022 Assessment & Plan (1) Right upper lobe pneumonia: (2) Chronic obstructive pulmonary disease: (3) Acute electrocardiography changes: (4) Hypertension: Plan This is a 72 yr old M who has a significant PMH of COPD not on oxygen, agent orange exposure, hx of lung cancer s/p L lobectomy, HTN, HLD and other medical problems as below who presents to ED at referral of [place] clinic due to hypoxia. He sees the [place] and was seen in clinic today and was found to be hypoxic and tachycardic so referred to ED. Patient has been experiencing lower URI symptoms for approximately 10 days now with productive purulent sputum. Although viral URI panel, COVID and RSV negative symptoms likely started as viral process and now evolving to bacterial. Acute hypoxic respiratory failure Pneumonia COPD without exacerbation hx of Lung ca s/p L lobectomy Chest CT: negative PE but worsened consolidation to RUL ? pneumonitis blood cx no growth sputum cx showed no growth Currently on IV rocephin, oral azithromycin Continue pulmonary toilet, nebulizer treatment, incentive spirometer, flutter valve continue home inhalers Will add prednisone 20mg and Mucomyst BID Continue oxygen supplement We will consider two-step exercise on discharge EKG changes Troponin x3 negative. Previous EKG from 2018 did have T wave inversions in inferior leads and nonspecific T wave abnormality in anterior leads Denies any chest pain Continue monitor closely Hypomagnesemia Magnesium 1.7 Continue monitor electrolyte HTN continue amlodipine, lisinopril, metoprolol bp stable HLD continue statin DVT ppx: SQ lovenox FULL CODE Disposition We will discharge once medically stable Admission and Anticipated Discharge Date Admission Date: September 12, 2022 Subjective Patient was seen and examined for follow-up of shortness of breath Lying in bed no acute distress He continues to require oxygen supplement He said that his oxygen saturation drops with minimal exertion Denies any chest pain, palpitation, dizziness,fever Review of Systems Review of Systems: All systems reviewed & are unremarkable except as noted in Subjective Physical Exam Physical Exam: General- No acute distress Head- atraumatic Eyes- PERRL, EOMI, ENT- oropharynx clear Neck- supple, no JVD Lungs- diminished BS Heart- regular rhythm; no murmur Abdomen- normal bowel sounds, soft, nontender Extremities- no calf tenderness Neuro- alert, oriented x 3; PERRL, EOMI; no facial palsy; no dysarthria Skin- warm & dry Results & Data Results & Data Vital Signs (Past 12 Hours) Vital Signs Temp Pulse Pulse Resp BP Pulse Ox O2 Del Method 09/15/22 15:19 36.4 C L 79 18 123/77 92 Nasal Cannula 09/15/22 12:11 Nasal Cannula 09/15/22 12:04 36.6 C 68 18 117/76 94 Nasal Cannula 09/15/22 08:08 36.5 C 112 H 18 108/71 92 Nasal Cannula 09/15/22 07:18 103 H 20 94 Nasal Cannula 09/15/22 06:58 93 H O2 Flow Rate 09/15/22 15:19 2 09/15/22 12:11 3 09/15/22 12:04 2 09/15/22 08:08 3 09/15/22 07:18 3 09/15/22 06:58
[2022-09-15] MEDS ORDERED: ACETYLCYSTEINE 10% INHAL SOLN 4 ML **DISPENSED BY RESP. INH SCH (17:00)
[2022-09-15] MEDS: ACETYLCYSTEINE 10% INHAL SOLN 4 ML **DISPENSED BY RESP. INH SCH (19:15)
[2022-09-15] MEDS: ENOXAPARIN INJ 40 MG/0.4 ML SYR SQ SCH (20:27)
[2022-09-15] MEDS: CHOLECALCIFEROL 1,000 UNITS 25 MCG TAB PO SCH (20:28)
[2022-09-15] MEDS: traZODone HCL 100 MG TAB PO SCH (20:28)
[2022-09-15] MEDS: AZITHROMYCIN 250 MG TAB PO SCH (20:29)
[2022-09-15] MEDS: lisinopril 5 MG TAB PO SCH (20:29)
[2022-09-15] MEDS: amLODIPine BESYLATE 5 MG TAB PO SCH (20:29)
[2022-09-15] MEDS: ATORVASTATIN 40 MG TAB PO SCH (20:29)
[2022-09-15] MEDS: cefTRIAXone SODIUM 2,000 MG in DEXTROSE 5% 50 ML IV SCH (20:30)
[2022-09-15] MEDS: AMMONIUM LACTATE 12% LOTION 225 GM BTL EXT SCH (20:30)
[2022-09-15] MEDS: NITROGLYCERIN 0.2 MG/HR PATCH TD SCH (21:28)
[2022-09-16] MEDS: guaiFENesin SUGAR FREE 200 MG/10 ML UDC PO SCH ×3 (02:25→14:47)
[2022-09-16 06:28] LABS: Creatinine Clr Calc Pharmacy 71.8 ml/min; Est GFR (African American) 104.7 ml/min; Est GFR (Non-African American) 90.3 ml/min
[2022-09-16] MEDS: ASPIRIN 81 MG ECTAB PO SCH (08:05)
[2022-09-16] MEDS: METOPROLOL TARTRATE 25 MG TAB PO SCH (08:06)
[2022-09-16] MEDS: MAGNESIUM OXIDE 400 MG TAB PO SCH (08:06)
[2022-09-16] MEDS: PANTOprazole 40 MG TAB PO SCH (08:06)
[2022-09-16] MEDS: FLUTICASONE/VILANTEROL 100/25MCG 14 PUFFS/INHALER INH SCH (08:06)
[2022-09-16] MEDS: CALCIUM 600MG + VIT D 400 IU TAB PO SCH (08:06)
[2022-09-16] MEDS: UMECLIDINIUM BROMIDE 62.5MCG/BLISTER 7 PUFFS/INHALER INH SCH (08:07)
[2022-09-16] MEDS: PREGABALIN 75 MG CAP PO SCH (08:12)
[2022-09-16] MEDS: SODIUM CHLOR 7% 4 ML NEB NEB SCH (08:20)
[2022-09-16] MEDS: ALBUTEROL 0.083% NEBU SOLN 3 ML VIAL NEB PRN (08:21)
[2022-09-16] MEDS: ACETYLCYSTEINE 10% INHAL SOLN 4 ML **DISPENSED BY RESP. INH SCH (08:21)
[2022-09-16] MEDS ORDERED: predniSONE 20 MG TAB PO SCH (09:00)
--- NOTE | 2022-09-16 15:38 | Discharge Summary ---
Date of Service September 16, 2022 Admission HPI Per Admitting Provider This is a 72 yr old M who has a significant PMH of COPD not on oxygen, agent orange exposure, hx of lung cancer s/p L lobectomy, HTN, HLD and other medical problems as below who presents to ED at referral of [place] clinic due to hypoxia. He sees the [place] and was seen in clinic today and was found to be hypoxic and tachycardic so referred to ED. He complains of Cough x 10 days. Cough is productive and purulent. He generally feels feverish, chills, rhinorrhea, sinus congestion, and gets SOB with coughing. He has not taken his temperature to know of true fever. He denies BEAR, dizziness, lightheaded, chest pain, sob at rest, n/v/d, abd pain. Appetite has been reduced over last 10 days. He has positive sick contacts with great grandson who also had URI sx. In ED patient made hemodynamically stable but was hypoxic requiring 2 L of supplemental oxygen. His CBC and CMP was generally unremarkable. His bio fire, SARS-CoV-2 and RSV were negative. Chest CTA revealed prior left pneumonectomy, no filling defects concerning for pulmonary embolus, small patchy airspace opacity within the right upper lobe has progressed which could representing developing pneumonitis. Recommend 6-month CT chest follow-up to ensure resolution. Also noted is emphysema within the right lung. He received IV fluid and albuterol nebulizer treatment while in ED. Family members are at bedside. Principal Diagnosis Acute hypoxic respiratory failure Pneumonia COPD without exacerbation Hypertension Dyslipidemia Discharge Exam General- No acute distress Head- atraumatic Eyes- PERRL, EOMI, ENT- oropharynx clear Neck- supple, no JVD Lungs- diminished BS Heart- regular rhythm; no murmur Abdomen- normal bowel sounds, soft, nontender Extremities- no calf tenderness Neuro- alert, oriented x 3; PERRL, EOMI; no facial palsy; no dysarthria Skin- warm & dry Discharge Data Allergies Allergy/AdvReac Type Severity Reaction Status Date / Time oxycodone Allergy Intermediate Hives Verified 09/12/22 18:46 shellfish derived Allergy Intermediate Hives Verified 09/12/22 18:46 shrimp Allergy Intermediate hives Verified 09/12/22 18:46 Consultations 09/12/22 18:31 ED Decision to Admit Stat Ordered Studies 09/12/22 14:07 CT angio chest PE protocol Stat Hospital Course (1) Right upper lobe pneumonia: (2) Chronic obstructive pulmonary disease: (3) Acute electrocardiography changes: (4) Hypertension: Plan This is a 72 yr old M who has a significant PMH of COPD not on oxygen, agent orange exposure, hx of lung cancer s/p L lobectomy, HTN, HLD and other medical problems as below who presents to ED at referral of [place] clinic due to hypoxia. He sees the [place] and was seen in clinic today and was found to be hypoxic and tachycardic so referred to ED. Patient has been experiencing lower URI symptoms for approximately 10 days now with productive purulent sputum. Although viral URI panel, COVID and RSV negative symptoms likely started as viral process and now evolving to bacterial. Acute hypoxic respiratory failure Pneumonia COPD without exacerbation hx of Lung ca s/p L lobectomy Chest CT: negative PE but worsened consolidation to RUL ? pneumonitis blood cx no growth sputum cx showed no growth Currently on IV rocephin, oral azithromycin Continue pulmonary toilet, nebulizer treatment, incentive spirometer, flutter valve continue home inhalers Will add prednisone 20mg and Mucomyst BID Continue oxygen supplement We will consider two-step exercise on discharge EKG changes Troponin x3 negative. Previous EKG from 2018 did have T wave inversions in inferior leads and nonspecific T wave abnormality in anterior leads Denies any chest pain Continue monitor closely Hypomagnesemia Magnesium 1.7 Continue monitor electrolyte HTN continue amlodipine, lisinopril, metoprolol bp stable HLD continue statin DVT ppx: SQ lovenox FULL CODE Disposition We will discharge once medically stable Total Time Total Time Spent Total Time Spent (In Minutes): 45 minutes Discharge Plan Discharge Items Patient Disposition: Home - Self-Care Reason For Visit: PNEUMONIA Discharge Diagnosis: Acute hypoxic respiratory failure Pneumonia COPD without exacerbation Hypertension Dyslipidemia Activity: Resume your previous activity Non-emergency contact: Primary Care Provider Call non-emergency contact if: you have any medication questions, your symptoms worsen and your temperature is above 101 Follow-up/Referrals: Monserrat Israel PA-C [Primary Care Provider] - Diet: Heart Healthy Addtl Attending Provider Instructions: Follow up with your primary care provider within 1 week Continue oxygen supplement with 2 liter nasal canula with ambulation Continue incentive spirometry and flutter valve Seek medical attention if your symptoms worsening Fall precaution Stand-Alone Forms: [facility] [employer] [place], Smoking Cessation Medications and DC Order Prescriptions: No Action atorvastatin 40 mg tablet 40 mg PO HS nitroglycerin 0.2 mg/hr patch 24 hour 1 patch Topical HS Rx Instructions: On at night and off in the morning amlodipine 5 mg tablet 5 mg PO HS omeprazole 20 mg capsule,delayed release(DR/EC) 20 mg PO BID lisinopril 5 mg tablet 5 mg PO HS albuterol sulfate [Ventolin HFA] 90 mcg/actuation Hfa Aerosol Inhaler 2 puff INHALATION QID PRN (Reason: Shortness Of Breath) cholecalciferol (vitamin D3) [Vitamin D3] 1,000 unit Tablet 1,000 unit PO HS metoprolol tartrate 50 mg Tablet 25 mg PO BID aspirin [Aspirin Low-Strength] 81 mg Tablet,Delayed Release (Dr/Ec) 81 mg PO DAILY benzonatate 100 mg capsule 200 mg PO TID ammonium lactate 12 % cream 1 applic TOPICAL HS Rx Instructions: apply to heels calcium carbonate-vitamin D3 [Calcium 500 + D] 500 mg-5 mcg (200 unit) Tablet 1 tab PO DAILY pregabalin 75 mg capsule See Rx Instructions .ROUTE .COMPLEX Rx Instructions: take 1 capsule(75 mg) orally in the morning and take 2 capsules (150 mg) in the evening cyclobenzaprine 10 mg tablet 10 mg PO HS PRN (Reason: Muscle Pain) clobetasol 0.05 % ointment 1 applic TOPICAL BID PRN (Reason: dermatitis) tiotropium bromide 2.5 mcg/actuation Mist 2 puff INHALATION DAILY naloxone 4 mg/actuation Cocoa,Non-Aerosol 4 mg INTRANASAL UD PRN (Reason: accidental overdose) Rx Instructions: 1 spray in alternating nostrils once as needed guaifenesin 200 mg tablet 200 mg PO Q6 PRN (Reason: cough/congestion) magnesium oxide 420 mg tablet 420 mg PO DAILY fluticasone propion-salmeterol 500-50 mcg/dose Blister With Device 1 inh INHALATION BID diclofenac sodium 1 % Gel 2 g TOPICAL TID PRN (Reason: joint pain) Rx Instructions: apply to single elbow, wrist or hand; for hand includes palm/fingers/back of hand meclizine 12.5 mg Tablet 25 mg PO TID PRN (Reason: Vertigo) trazodone 100 mg Tablet 100 mg PO HS Admission Data Admit Date/Time: 09/12/22 19:07 Attending Provider: Agnes Montgomery Admit Provider: Lucita Mehta I. Primary Care Provider: Monserrat Israel Other Providers: Lucita Mehta I. ; [facility]
== END 2022-09-16 16:51 | disposition home or self-care (01) | DRG 193 ==
LOC: ED 13:55 → 2N 19:07 → SUATTDRO 19:07 → 2N 21:10

== ENCOUNTER 2025-05-16 09:02 | Inpatient (IN) ==
--- NOTE | 2025-05-16 09:12 | Emergency Department Note ---
Impression & Plan Acute respiratory failure with hypoxia and hypercarbia, Elevated troponin, Influenza ED Provider Note Provider: Chay Hammer MD CHIEF COMPLAINT: Shortness of breath HISTORY OF PRESENT ILLNESS: Patient is a 75-year-old gentleman history of hypertension, agent order exposure, COPD not on oxygen status post left lung lobectomy presenting here today via ambulance from home. Over the last several days he has had some worsening shortness of breath. Overnight significantly worsened and called EMS. EMS report he was 64% on room air. Does not use oxygen normally. Did seem somewhat wheezy and given nebulizer x 2 as well as 125 mg of Solu-Medrol prior to arrival. Noted to be febrile with a temperature 101 Fahrenheit actually for EMS and given IV Tylenol. Much improved according to EMS. Patient denies any pain or fainting. He also reports he is feeling improved. PAST MEDICAL HISTORY: As noted above MEDICATIONS: Reviewed home medications SOCIAL HISTORY: Former smoker, PHYSICAL EXAM: GENERAL: alert and oriented in no acute distress on stretcher BiPAP mask in place Head: normocephalic and atraumatic EYES: No injection, discharge or icterus. PERRL, EOMI. NECK: Trachea midline. Supple. ENT: Mucous membranes pink and moist. LUNGS: Airway patent. No retractions. Breath sounds faint wheeze on the right, absent on the left HEART: Regular tachycardic rate and rhythm. No chest wall tenderness ABDOMEN: Soft and non-tender, without guarding or rebound. SKIN: Acyanotic, warm, dry, without rashes EXTREMITIES: Without swelling, tenderness or deformity NEUROLOGICAL: No focal deficits. No aphasia. No facial droop or slurred speech. EK bpm sinus tachycardia. No PVC or PAC. Some artifact but no clear acute ST segment elevation or depression left axis with a QTc of 431. CONTINUOUS CARDIAC MONITORING: was ordered and showed a heart rate of 100s-120s bpm in sinus tachycardia Patient's laboratory studies and imaging reviewed. Differential includes Reactive airway disease, pneumonia, pneumothorax, COPD, CHF, infections, cardiac ischemia, pulmonary embolism, musculoskeletal, gastrointestinal, as well as other pathologies. IMPRESSION/MEDICAL DECISION MAKING: Patient significant respite distress prior to arrival. Received nebulizers, Tylenol, and Solu-Medrol prior to arrival. BiPAP in addition to this seems to have significant improved him. Was able to try off BiPAP here initially. Will complete imaging of his lungs and given the significant history prickly the left lung surgery, CT angiogram of the chest was obtained. Respiratory viral panel and blood cultures and lactate are sent given the reported fever prior to arrival. Question if this is COPD versus fluid overload versus pneumonia/URI/bronchitis. Given the wheeze given some additional DuoNeb here. Does not seem that encephalopathic but will obtain VBG, BMP, lactate, blood cultures addition to basic blood work. Given the fever and his respiratory distress empirically covered with a dose of cefepime as well as azithromycin here with his underlying lung disease. VBG with a pH of 729 and CO2 of 79. This was taken at arrival. Appears clear at this time. Lactate not elevated. Procalcitonin not significantly elevated. Minimal leukocytosis of 11.5. Hemoglobin elevated 18.5. No severe electrolyte abnormality or renal dysfunction noted today. Troponin minimally elevated at 58.9 likely more demand. Respiratory viral panel again is sent. CT angiogram of the chest per radiology shows no PE. Inflammatory changes questioning infection but not clear pneumonia. Discussed with patient and findings recommendation for further care here at the hospital. Tamiflu ordered given his relative illness severity. Given a small IV fluid bolus of 500 mL normal saline but avoiding significant others to prevent fluid overload given reported history of some fluid overload in the past. Discussed with the hospitalist here. On reassessment seems to be fatigue and little more tachypneic and will place back on BiPAP. DIAGNOSIS: Acute hypoxic hypercapnic respiratory failure, COPD exacerbation, influenza DISPOSITION: Hospitalist will evaluate Patient was agreeable with this plan. Critical Care I have personally spent 59 minutes of critical care time in the direct management of this patient. This includes bedside care, interpretation of diagnostic studies, and testing, discussion with consultants, patient, and family members, and other required patient management activities. These 59 minutes is in excess of all separately billable procedures. 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 - breaks out more in summer - uses loratidine and clobetasol cream Vertigo only in them qam - taking meclizine Degenerative disc disease cervical Osteoarthritis GERD (gastroesophageal reflux disease) Memory loss Myocardial Infarction 1996 - severe chest pain - life lighted to [facility] - Cardiac Cath - no stents - 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 Hypertension Hyperlipidemia Chronic obstructive pulmonary disease no Ox - uses inhalers as needed Lung cancer CHEMO 05/30 - 09/2008 - Follows [facility] (formerly [facility]3] - q6m - recent scan 11/2021 showed spot on long - monitoring Surgical History Hx of vasectomy History of esophagogastroduodenoscopy (EGD) History of colonoscopy History of herniorrhaphy History of tooth extraction History of cardiac cath 1996 post [place] - (NO STENTS) [facility] - 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 History of lobectomy of lung LEFT LOBECTOMY 04/2008 d/t lung cancer Family History Other No pertinent family history Social History Smoking Status: Former smoker Tobacco Type: Cigarettes Cigarettes Per Day: "WILL SMOKE A PUFF EVERY ONCE IN A WHILE WHEN I GET NERVOUS"; Second Hand Exposure: No; Do You Dip or Chew Tobacco: No; Hx Alcohol Use: No Hx Substance Use: No Preferred Language: Spanish Communication Ability: Effective Trust Administrative Assistant Required: No Beliefs That Will Affect Care: None Current Living Situation: Spouse Feels Safe at Home: Yes Assistive Devices: Glasses Allergies Allergies Allergy/AdvReac Type Severity Reaction Status Date / Time oxycodone Allergy Intermediate Hives Verified 05/16/25 11:59 shellfish derived Allergy Intermediate Hives Verified 05/16/25 11:59 shrimp Allergy Intermediate hives Verified 05/16/25 11:59 Home Meds Home Medications Medication Instructions Recorded Confirmed albuterol sulfate 90 mcg/actuation 2 puff inhalation QID PRN 04/01/18 05/16/25 aerosol inhaler (Ventolin HFA) Shortness Of Breath lisinopril 5 mg tablet 5 mg PO HS 04/01/18 05/16/25 nitroglycerin 0.2 mg/hr 1 patch topical HS 04/01/18 05/16/25 transdermal 24 hour patch metoprolol tartrate 50 mg tablet 50 mg PO BID 09/21/18 05/16/25 aspirin 81 mg tablet,delayed 81 mg PO DAILY 09/12/22 05/16/25 release benzonatate 100 mg capsule 200 mg PO TID PRN Cough 09/12/22 05/16/25 calcium 500 mg (as 1 tab PO DAILY 09/12/22 05/16/25 carbonate)-vitamin D3 5 mcg (200 unit) tablet (Calcium 500 + D) fluticasone 500 mcg-salmeterol 50 1 inh inhalation BID 09/12/22 05/16/25 mcg/dose blistr powdr for inhalation guaifenesin 200 mg tablet 200 mg PO Q6 PRN cough/congestion 09/12/22 05/16/25 magnesium oxide 420 mg tablet 420 mg PO BID 09/12/22 05/16/25 tiotropium bromide 2.5 2 puff inhalation DAILY 09/12/22 05/16/25 mcg/actuation mist for inhalation atorvastatin 80 mg tablet 40 mg PO HS 05/16/25 05/16/25 carboxymethylcellulose sodium 0.5 1 drp ophthalmic (eye) TID 05/16/25 05/16/25 % eye drops carboxymethylcellulose sodium 1 % 1 drp ophthalmic (eye) HS 05/16/25 05/16/25 eye gel in a dropperette cyanocobalamin (vitamin B-12) 500 500 mcg PO DAILY 05/16/25 05/16/25 mcg tablet food supplemt, lactose-reduced 1 ea PO DAILY 05/16/25 05/16/25 methyl salicylate 15 %-menthol 10 1 applic topical TID PRN Pain 05/16/25 05/16/25 % topical cream (Muscle Rub) multivitamin with minerals 1 cap PO DAILY 05/16/25 05/16/25 pantoprazole 40 mg tablet,delayed 40 mg PO DAILY 05/16/25 05/16/25 release pregabalin 150 mg capsule 150 mg PO BID 05/16/25 05/16/25 Results & Data (ED) Vital Signs Vital Signs - 24 hr 05/16/25 09:10 05/16/25 09:26 05/16/25 09:29 Temperature 37.1 C Temperature Source Oral Pulse Rate 113 H 116 H Pulse Rate [Apical] 117 H Pulse Rhythm [Apical] Pulse Strength [Apical] Respiratory Rate 38 H 42 H Respiratory Effort / Characteristics Non-Labored Spontaneous Short of Breath Respiratory Depth Normal Respiratory Pattern Regular Blood Pressure 132/76 Blood Pressure [Left Arm] Blood Pressure Mean 94 Blood Pressure Mean [Left Arm] Blood Pressure Position Sitting Blood Pressure Position [Left Arm] Pulse Oximetry 98 87 L Oxygen Delivery Method Nebulizer Room Air Oxygen Flow Rate 8 Sepsis Recent Fever Within 48 Hours No Sepsis New/Unexplained Change in Mental Status No Sepsis Action Taken by Nursing Physician Notified 05/16/25 10:55 Temperature Temperature Source Pulse Rate Pulse Rate [Apical] 105 H Pulse Rhythm [Apical] Regular Pulse Strength [Apical] Normal Respiratory Rate 35 H Respiratory Effort / Characteristics Non-Labored Spontaneous Respiratory Depth Normal Respiratory Pattern Regular Blood Pressure Blood Pressure [Left Arm] 145/84 H Blood Pressure Mean Blood Pressure Mean [Left Arm] 104 Blood Pressure Position Blood Pressure Position [Left Arm] Sitting Pulse Oximetry 98 Oxygen Delivery Method Nasal Cannula Oxygen Flow Rate 4 Sepsis Recent Fever Within 48 Hours Sepsis New/Unexplained Change in Mental Status Sepsis Action Taken by Nursing Laboratory Data 05/16/25 09:17 05/16/25 09:17 Lab Results 05/16/25 05/16/25 05/16/25 Range/Units 08:59 09:15 09:17 WBC 11.54 H (4.8-10.8) K/ul RBC 6.00 (4.70-6.10) M/uL Hgb 18.5 H (14.0-18.0) g/dL POC Hgb (14.0-18.0) g/dl Hct 55.2 H (42.0-52.0) % POC Hct (42-52) % MCV 92.0 (80.0-100.0) fL MCH 30.8 (25.0-34.0) pg MCHC 33.5 (32.0-36.0) g/dL RDW Std Deviation 46.4 H (36.4-46.3) fL RDW Coeff of Deng 13.7 (11.5-14.5) % Plt Count 294 (130-400) K/uL MPV 9.9 (9.4-12.4) fL Immature Gran % (Auto) 0.3 % Neut % (Auto) 83.1 % Lymph % (Auto) 4.2 % [place] % (Auto) 10.8 % Eos % (Auto) 1.0 % Baso % (Auto) 0.6 % Neut # (Auto) 9.58 H (1.40-6.50) K/uL Lymph # (Auto) 0.49 L (1.20-3.40) K/uL [place] # (Auto) 1.25 H (0.11-0.59) K/uL Eos # (Auto) 0.11 (0.00-0.50) K/uL Baso # (Auto) 0.07 (0.00-0.20) K/uL Immature Gran # (Auto) 0.04 (0.01-0.20) K/uL PT 11.1 (9.0-12.0) Seconds INR 1.1 (0.9-1.1) APTT 27 (21-31) Seconds PTT Ratio 1.0 VBG pH 7.29 L (7.36-7.41) VBG pCO2 79 H (38-50) mmHg VBG pO2 36 mmHg VBG HCO3 38 mmol/L VBG O2 Saturation 61.2 % VBG Base Excess 8.3 mEq/L POC Sodium (135-144) mmol/L Sodium 136 (136-145) mmol/L POC Potassium (3.3-5.0) mmol/L Potassium 4.6 (3.5-5.1) mmol/L POC Chloride (101-112) mmol/L Chloride 95 L (98-107) mmol/L Carbon Dioxide 35 H (21-32) mmol/L POC Total CO2 (24-31) mmol/L Anion Gap 6 (3-11) POC Anion Gap (16-25) mmol/L POC BUN (7-18) mg/dl BUN 9 (6-23) mg/dl Creatinine 0.84 (0.6-1.4) mg/dl POC Creatinine (0.6-1.3) mg/dl Est Cr Clr Drug Dosing 64.5 ml/min eGFR 91.51 BUN/Creatinine Ratio 10.7 (10-20) Glucose 123 H (70-99(Fasting)) mg/dl POC Glucose (other) (70-99) mg/dl Lactate 1.5 (0.4-2.0) mmol/L Calcium 9.1 (8.6-10.3) mg/dl POC Ioniz Calcium Lien (1.12-1.32) mmol/l Magnesium 2.0 (1.7-2.4) mg/dl Total Bilirubin 0.6 (0.2-1.0) mg/dl AST 26 (13-39) U/L ALT 27 (7-52) U/L Alkaline Phosphatase 101 (34-104) U/L Troponin I High Sens 58.9 H* (0-20) pg/ml B-Natriuretic Peptide 126 H (0-100) pg/ml Total Protein 7.6 (6.0-8.3) gm/dl Albumin 4.2 (3.4-5.0) gm/dl Globulin 3.4 (2.5-4.0) gm/dl Albumin/Globulin Ratio 1.2 (0.9-2) Procalcitonin 0.17 (0-0.5) ng/ml Nasal Influ A H1 2008 PCR DETECTED A (NotDetected) Adenovirus (PCR) Not Detected (NotDetected) B. pertussis DNA (PCR) Not Detected (NotDetected) B.parapertussis DNA PCR Not Detected (NotDetected) C. pneumoniae DNA (PCR) Not Detected (NotDetected) Coronavirus OC43 (PCR) Not Detected (NotDetected) Coronavirus HKU1 (PCR) Not Detected (NotDetected) Coronavirus 229E (PCR) Not Detected (NotDetected) SARS-CoV-2 (PCR) Not Detected (NotDetected) Coronavirus NL63 (PCR) Not Detected (NotDetected) Human Metapneumovir PCR Not Detected (NotDetected) Influenza Type B (PCR) Not Detected (NotDetected) M. pneumoniae (PCR) Not Detected (NotDetected) Parainfluenza 1 (PCR) Not Detected (NotDetected) Parainfluenza 2 (PCR) Not Detected (NotDetected) Parainfluenza 3 (PCR) Not Detected (NotDetected) Parainfluenza 4 (PCR) Not Detected (NotDetected) RSV (PCR) Not Detected (NotDetected) Entero/Rhino (PCR) Not Detected (NotDetected) 11/24/25 11/24/25 Range/Units 09:30 11:08 WBC (4.8-10.8) K/ul RBC (4.70-6.10) M/uL Hgb (14.0-18.0) g/dL POC Hgb 19.4 H (14.0-18.0) g/dl Hct (42.0-52.0) % POC Hct 57 H (42-52) % MCV (80.0-100.0) fL MCH (25.0-34.0) pg MCHC (32.0-36.0) g/dL RDW Std Deviation (36.4-46.3) fL RDW Coeff of Deng (11.5-14.5) % Plt Count (130-400) K/uL MPV (9.4-12.4) fL Immature Gran % (Auto) % Neut % (Auto) % Lymph % (Auto) % [place] % (Auto) % Eos % (Auto) % Baso % (Auto) % Neut # (Auto) (1.40-6.50) K/uL Lymph # (Auto) (1.20-3.40) K/uL [place] # (Auto) (0.11-0.59) K/uL Eos # (Auto) (0.00-0.50) K/uL Baso # (Auto) (0.00-0.20) K/uL Immature Gran # (Auto) (0.01-0.20) K/uL PT (9.0-12.0) Seconds INR (0.9-1.1) APTT (21-31) Seconds PTT Ratio VBG pH (7.36-7.41) VBG pCO2 (38-50) mmHg VBG pO2 mmHg VBG HCO3 mmol/L VBG O2 Saturation % VBG Base Excess mEq/L POC Sodium 137 (135-144) mmol/L Sodium (136-145) mmol/L POC Potassium 4.6 (3.3-5.0) mmol/L Potassium (3.5-5.1) mmol/L POC Chloride 92 L (101-112) mmol/L Chloride (98-107) mmol/L Carbon Dioxide (21-32) mmol/L POC Total CO2 33 H (24-31) mmol/L Anion Gap (3-11) POC Anion Gap 17.0 (16-25) mmol/L POC BUN 11 (7-18) mg/dl BUN (6-23) mg/dl Creatinine (0.6-1.4) mg/dl POC Creatinine 0.9 (0.6-1.3) mg/dl Est Cr Clr Drug Dosing ml/min eGFR BUN/Creatinine Ratio (10-20) Glucose (70-99(Fasting)) mg/dl POC Glucose (other) 123 H (70-99) mg/dl Lactate (0.4-2.0) mmol/L Calcium (8.6-10.3) mg/dl POC Ioniz Calcium Lien 1.12 (1.12-1.32) mmol/l Magnesium (1.7-2.4) mg/dl Total Bilirubin (0.2-1.0) mg/dl AST (13-39) U/L ALT (7-52) U/L Alkaline Phosphatase (34-104) U/L Troponin I High Sens 90.8 H* D (0-20) pg/ml B-Natriuretic Peptide (0-100) pg/ml Total Protein (6.0-8.3) gm/dl Albumin (3.4-5.0) gm/dl Globulin (2.5-4.0) gm/dl Albumin/Globulin Ratio (0.9-2) Procalcitonin (0-0.5) ng/ml Nasal Influ A H1 2008 PCR (NotDetected) Adenovirus (PCR) (NotDetected) B. pertussis DNA (PCR) (NotDetected) B.parapertussis DNA PCR (NotDetected) C. pneumoniae DNA (PCR) (NotDetected) Coronavirus OC43 (PCR) (NotDetected) Coronavirus HKU1 (PCR) (NotDetected) Coronavirus 229E (PCR) (NotDetected) SARS-CoV-2 (PCR) (NotDetected) Coronavirus NL63 (PCR) (NotDetected) Human Metapneumovir PCR (NotDetected) Influenza Type B (PCR) (NotDetected) M. pneumoniae (PCR) (NotDetected) Parainfluenza 1 (PCR) (NotDetected) Parainfluenza 2 (PCR) (NotDetected) Parainfluenza 3 (PCR) (NotDetected) Parainfluenza 4 (PCR) (NotDetected) RSV (PCR) (NotDetected) Entero/Rhino (PCR) (NotDetected) Administered Medications Albuterol (Albut/Ipratrop 3mg/0.5mg Neb 3 Ml Vial) 3 ml NEB Q6R ALMITA; Protocol Stop: 06/15/25 12:59 Last Admin: 05/16/25 13:01 Dose: 3 ml Documented By: ALBA Miscellaneous (Remove Nitro-Dur Patch) 1 each N/A QAM ALMITA Stop: 06/15/25 12:14 Last Admin: 05/16/25 13:34 Dose: 1 each Documented By: DOMINIQUE Discontinued Medications Albuterol (Albut/Ipratrop 3mg/0.5mg Neb 3 Ml Vial) 12 ml NEB ONE ONE; Protocol Stop: 05/16/25 09:10 Last Admin: 05/16/25 09:15 Dose: 12 ml Documented By: BEAN Azithromycin (Azithromycin 250 Mg Tab) 500 mg PO NOW ONE Stop: 05/16/25 09:39 Last Admin: 05/16/25 10:18 Dose: 500 mg Documented By: DOMINIQUE Cefepime HCl (Maxipime 2000mg) 2,000 mg in 20 mls @ 5 mls/min IV NOW STA; Protocol Stop: 05/16/25 09:31 Last Admin: 05/16/25 10:19 Dose: 5 mls/min Documented By: DOMINIQUE Sodium Chloride (Nss) 500 mls @ 999 mls/hr IV .Q31M ONE Stop: 05/16/25 11:31 Last Infusion: 05/16/25 12:53 Dose: Infused Documented By: Admin: 05/16/25 11:04 Dose: 999 mls/hr Documented By: DOMINIQUE Ioversol (Optiray 320 125ml) 112 ml IV ONCE ONE Stop: 05/16/25 09:40 Last Admin: 05/16/25 09:40 Dose: 112 ml Documented By: MIGEL Lorazepam (Lorazepam 1 Mg/1 Ml Syr Ed Inj Use) 0.25 mg IV ONE STA Stop: 05/16/25 12:43 Last Admin: 05/16/25 12:49 Dose: 0.25 mg Documented By: DOMINIQUE Methylprednisolone (Methylprednisolone 125 Mg/2 Ml Vial) 60 mg IV NOW STA Stop: 05/16/25 11:24 Last Admin: 05/16/25 11:39 Dose: 60 mg Documented By: DOMINIQUE Nitroglycerin (Nitroglycerin 2% Ointment 30gm Tube) 1 inch EXT NOW STA Stop: 05/16/25 13:13 Last Admin: 05/16/25 13:30 Dose: 1 inch Documented By: DOMINIQUE Oseltamivir Phosphate (Oseltamivir Phosphate 75 Mg Cap) 75 mg PO NOW STA Stop: 05/16/25 10:50 Last Admin: 05/16/25 11:03 Dose: 75 mg Documented By: DOMINIQUE Imaging Data Radiologist's Impression: Chest CTA 05/16/25 08:59 CT angio chest PE protocol CT DOSE: 371.73 mGy.cm HISTORY: Dyspnea, hypoxia. TECHNIQUE: Multiple CTA images of the chest were obtained after the intravenous administration of 112 ml Optiray. Coronal and sagittal MIPS were obtained from the axial data set and were submitted for review. All measurements were obtained according to NASCET criteria. A dose lowering technique was utilized adhering to the principles of ALARA. COMPARISON STUDY: 09/12/2022 FINDINGS: Stable left pneumonectomy with stable postoperative fluid at the left hemithorax. Stable shift of the heart and mediastinum to the left with compensatory hyperexpansion of the right lung. There is motion artifact due to difficulty breath holding. There are multiple interval scattered reticular nodular opacities measuring up to 8 mm right upper lobe series 4 image 193. No lobar consolidation or pleural effusion. No pneumothorax. No enlarged adenopathy. No pericardial effusion. There are coronary artery calcifications. No thoracic aortic dissection or aneurysm. No pulmonary embolism seen. No acute osseous findings. IMPRESSION: 1. No pulmonary embolism seen. 2. Multiple interval scattered small reticular nodular opacities throughout the right lung likely represent infectious/inflammatory etiology. Recommend follow- up chest CT in 3 months to make sure that this resolves without underlying pulmonary nodule. ACT 112: Positive. There are findings on this exam that require communication between the performing entity and the patient following Patient Test Result Information Act ([place] Act 112) guidelines. The above report was generated using voice recognition software. It may contain grammatical, syntax or spelling errors. Electronically signed by: Rubin Flores M.D. 05/16/2025 10:20 AM Chest X-Ray 05/16/25 08:59 XR chest 1V portable CLINICAL HISTORY: Dyspnea COMPARISON STUDY: 09/12/2022 FINDINGS: Stable prior left pneumonectomy with complete opacification of the left hemithorax. Stable shift of the heart and mediastinum to the left with compensatory hyperexpansion of the right lung. The right lung shows no consolidation or pleural effusion. No pneumothorax. IMPRESSION: No acute findings. ACT 112: Negative or not required by law. Electronically signed by: Rubin Flores M.D. 05/16/2025 9:18 AM Discharge Plan Visit Data Chief Complaint: Respiratory Distress Stated Complaint: Respiratory Distress ED Provider: Chay Hammer Discharge Problem: Acute respiratory failure with hypoxia and hypercarbia, Elevated troponin, Influenza Patient Disposition: Being Evaluated by Hospitalist Condition: Serious Discharge Instructions Interventions: ED Discharge Assessment Last Done: 05/16/25 11:57
[2025-05-16] MEDS: ALBUT/IPRATROP 3MG/0.5MG NEB 3 ML VIAL NEB ONE (09:15)
--- NOTE | 2025-05-16 09:19 | XRay Report ---
XR chest 1V portable CLINICAL HISTORY: Dyspnea COMPARISON STUDY: 09/12/2022 FINDINGS: Stable prior left pneumonectomy with complete opacification of the left hemithorax. Stable shift of the heart and mediastinum to the left with compensatory hyperexpansion of the right lung. Th e right lung shows no consolidation or pleural effusion. No pneumothorax. IMPRESSION: No acute findings. ACT 112: Negative or not required by law. Electronically signed by: Rubin Flores M.D. 05/16/2025 9:18 AM
[2025-05-16 09:36] LABS: Base Excess VBG 8.3 mEq/L; HCO3 VBG 38 mmol/L; Oxygen Saturation VBG 61.2 %; PCO2 VBG 79 mmHg (38-50); PO2 VBG 36 mmHg; pH VBG 7.29 (7.36-7.41)
[2025-05-16] MEDS: OPTIRAY 320 125ml IV ONE (09:40)
[2025-05-16 09:41] LABS: Hematocrit (blood only) 55.2 % (42.0-52.0); Hemoglobin 18.5 g/dL (14.0-18.0); Immature Granulocytes # (auto) 0.04 K/uL (0.01-0.20); Immature Granulocytes % (auto) 0.3 %; Platelet Count 294 K/uL (130-400); White Blood Count 11.54 K/ul (4.8-10.8)
[2025-05-16 09:52] LABS: Mean Corpuscular Hemoglobin 30.8 pg (25.0-34.0); Mean Corpuscular Volume 92.0 fL (80.0-100.0); RDW Standard Deviation 46.4 fL (36.4-46.3); Red Blood Count 6.00 M/uL (4.70-6.10)
[2025-05-16 09:57] LABS: Alanine Aminotransferase 27.0 U/L (7-52); Albumin Globulin Ratio 1.2 (0.9-2); Albumin Level 4.2 gm/dl (3.4-5.0); Alkaline Phosphatase 101.0 U/L (34-104); Anion Gap 6.0 (3-11); Bilirubin,Total 0.6 mg/dl (0.2-1.0); Blood Urea Nitrogen 9.0 mg/dl (6-23); Calcium 9.1 mg/dl (8.6-10.3); Carbon Dioxide 35.0 mmol/L (21-32); Chloride 95.0 mmol/L (98-107); Creatinine Clr Calc Pharmacy 64.5 ml/min; Globulin 3.4 gm/dl (2.5-4.0); Glucose 123.0 mg/dl (70-99(Fasting)); Magnesium 2.0 mg/dl (1.7-2.4); Potassium 4.6 mmol/L (3.5-5.1); Sodium 136.0 mmol/L (136-145); Total Protein 7.6 gm/dl (6.0-8.3)
[2025-05-16 10:08] LABS: INR 1.1 (0.9-1.1); Partial Thromboplastin Time 27 Seconds (21-31); Prothrombin Time 11.1 Seconds (9.0-12.0)
[2025-05-16] MEDS: AZITHROMYCIN 250 MG TAB PO ONE (10:18)
[2025-05-16] MEDS: CEFEPIME 2000MG 2,000 MG/20 ML SYR IV STA (10:19)
--- NOTE | 2025-05-16 10:22 | CT Scan Report ---
CT angio chest PE protocol CT DOSE: 371.73 mGy.cm HISTORY: Dyspnea, hypoxia. TECHNIQUE: Multiple CTA images of the chest were obtained after the intravenous administration of 112 ml Optiray. Coronal and sagittal MIPS were obtained from the axial data set and were submitted for review. All measurements were obtained according to NASCET criteria. A dose lowering technique was u tilized adhering to the principles of ALARA. COMPARISON STUDY: 09/12/2022 FINDINGS: Stable left pneumonectomy with stable postoperative fluid at the left hemithorax. Stable sh ift of the heart and mediastinum to the left with compensatory hyperexpansion of the right lung. Ther e is motion artifact due to difficulty breath holding. There are multiple interval scattered reticula r nodular opacities measuring up to 8 mm right upper lobe series 4 image 193. No lobar consolidation or pleural effusion. No pneumothorax. No enlarged adenopathy. No pericardial effusion. There are tavia nary artery calcifications. No thoracic aortic dissection or aneurysm. No pulmonary embolism seen. No acute osseous findings. IMPRESSION: 1. No pulmonary embolism seen. 2. Multiple interval scattered small reticular nodular opacities throughout the right lung likely rep resent infectious/inflammatory etiology. Recommend follow-up chest CT in 3 months to make sure that t his resolves without underlying pulmonary nodule. ACT 112: Positive. There are findings on this exam that require communication between the performing entity and the patient following Patient Test Result Information Act ([place] Act 112) guidelines. The above report was generated using voice recognition software. It may contain grammatical, syntax o r spelling errors. Electronically signed by: Rubin Flores M.D. 05/16/2025 10:20 AM
[2025-05-16 10:39] LABS: Chlamydia pneumoniae PCR Not Detected (NotDetected); Coronavirus 229E PCR Not Detected (NotDetected); Coronavirus CoV-2 (COVID19)PCR Not Detected (NotDetected); Coronavirus HKU1 PCR Not Detected (NotDetected); Coronavirus NL63 PCR Not Detected (NotDetected); Coronavirus OC43PCR Not Detected (NotDetected); Human Metapneumovirus PCR Not Detected (NotDetected); Influenza A (H1 2009) PCR DETECTED (NotDetected); Parainfluenza Virus 1 PCR Not Detected (NotDetected); Parainfluenza Virus 2 PCR Not Detected (NotDetected); Parainfluenza Virus 3 PCR Not Detected (NotDetected); Parainfluenza Virus 4 PCR Not Detected (NotDetected); Respiratory Syncytial VirusPCR Not Detected (NotDetected); Rhinovirus/Enterovirus PCR Not Detected (NotDetected)
[2025-05-16] MEDS: OSELTAMIVIR PHOSPHATE 75 MG CAP PO STA (11:03)
[2025-05-16] MEDS: SODIUM CHLORIDE 0.9% 500 ML IV ONE (11:04)
--- NOTE | 2025-05-16 11:38 | History & Physical Report ---
Date of Service May 16, 2025 Assessment & Plan (1) Acute respiratory failure with hypoxia and hypercarbia: Plan: Has left pneumonectomy secondary to lung cancer COPD on right lung and now has influenza with swine flu COPD exacerbation - started on intravenous Solu-Medrol, Tamiflu and nebulized bronchodilator No evidence of pulmonary embolism and no consolidation doubt any pneumonia so antibiotic will not be given ABG showed hypercarbia and he was put on BiPAP as well Will admit him to med/telemetry unit and may need pulmonary evaluation Will get pulmonary consult He has been very distressed and could not tolerate BiPAP He was given very small dose of Ativan 0.25 mg His agitation decreased but again he could not continue continue with the BiPAP due to ongoing distress and restless Following that he was noted less responsive but is still talking to me and telling that he has been okay Repeat VBG showed CO2 level has gone up to 121 The case was discussed with manager account management and again with the patient and the family members The patient did not want to have any intubation and the family members do not want any intubation Plan is to continue BiPAP at this time and wait for the outcome Prognosis remains very poor Discussed with the family members in detail (2) Influenza: Plan: as above (3) Elevated troponin: Plan: Mildly elevated troponin likely secondary to a stress-induced Doubt any ACS Will cycle troponin (4) GERD (gastroesophageal reflux disease): Plan: Continue Protonix/PPI (5) Hypertension: Plan: Blood pressure remains on the upper side at 145/84 Will continue current medications to control blood pressure (6) Hyperlipidemia: (7) Chronic obstructive pulmonary disease: Plan: History of COPD on right lung Has been on nebs at home but no oxygen Has COPD exacerbation and treatment as above (8) Lung cancer: Plan: History of lung cancer and is status post left pneumonectomy DVT prophylaxis Subcu heparin CODE STATUS DNR/DNI History of Present Illness Chief Complaint: Cough with shortness of breath since this morning associated with dizziness Primary Care Provider: Monserrat Israel PA-C he is a 75-year-old male with significant past medical history of COPD not on any oxygen, agent orange exposure, history of lung cancer status post left pn eumonectomy, hypertension, hyperlipidemia apparently has been complaining of increasing shortness of breath since this morning associated with cough and fever. He denies any chest pain and/or palpitation, does not have any abdominal pain nausea and/or vomiting. Denies any problem with urine or bowel habit. He was noted to be hypoxic and requiring initially 4 L and then ABG showed increase in CO2 and he was put on BiPAP. He was positive for swine flu and started with Tamiflu on top of supportive medications and was admitted to medical telemetry unit for continuation of care. Allergies Allergy/AdvReac Type Severity Reaction Status Date / Time oxycodone Allergy Intermediate Hives Verified 05/16/25 11:59 shellfish derived Allergy Intermediate Hives Verified 05/16/25 11:59 shrimp Allergy Intermediate hives Verified 05/16/25 11:59 Home Medications Medication Instructions Recorded Confirmed Type albuterol sulfate 90 mcg/actuation 2 puff inhalation QID PRN 04/01/18 05/16/25 History aerosol inhaler (Ventolin HFA) Shortness Of Breath lisinopril 5 mg tablet 5 mg PO HS 04/01/18 05/16/25 History nitroglycerin 0.2 mg/hr 1 patch topical HS 04/01/18 05/16/25 History transdermal 24 hour patch metoprolol tartrate 50 mg tablet 50 mg PO BID 09/21/18 05/16/25 History aspirin 81 mg tablet,delayed 81 mg PO DAILY 09/12/22 05/16/25 History release benzonatate 100 mg capsule 200 mg PO TID PRN Cough 09/12/22 05/16/25 History calcium 500 mg (as 1 tab PO DAILY 09/12/22 05/16/25 History carbonate)-vitamin D3 5 mcg (200 unit) tablet (Calcium 500 + D) fluticasone 500 mcg-salmeterol 50 1 inh inhalation BID 09/12/22 05/16/25 History mcg/dose blistr powdr for inhalation guaifenesin 200 mg tablet 200 mg PO Q6 PRN cough/congestion 09/12/22 05/16/25 History magnesium oxide 420 mg tablet 420 mg PO BID 09/12/22 05/16/25 History tiotropium bromide 2.5 2 puff inhalation DAILY 09/12/22 05/16/25 History mcg/actuation mist for inhalation atorvastatin 80 mg tablet 40 mg PO HS 05/16/25 05/16/25 History carboxymethylcellulose sodium 0.5 1 drp ophthalmic (eye) TID 05/16/25 05/16/25 History % eye drops carboxymethylcellulose sodium 1 % 1 drp ophthalmic (eye) HS 05/16/25 05/16/25 History eye gel in a dropperette cyanocobalamin (vitamin B-12) 500 500 mcg PO DAILY 05/16/25 05/16/25 History mcg tablet food supplemt, lactose-reduced 1 ea PO DAILY 05/16/25 05/16/25 History methyl salicylate 15 %-menthol 10 1 applic topical TID PRN Pain 05/16/25 05/16/25 History % topical cream (Muscle Rub) multivitamin with minerals 1 cap PO DAILY 05/16/25 05/16/25 History pantoprazole 40 mg tablet,delayed 40 mg PO DAILY 05/16/25 05/16/25 History release pregabalin 150 mg capsule 150 mg PO BID 05/16/25 05/16/25 History Past Med/Surg History Problem List (Updated 05/16/25 @ 11:52 by Background Daemon) Influenza (Acute) Elevated troponin (Acute) Acute respiratory failure with hypoxia and hypercarbia (Acute) History of colon polyps Weight loss Encounter for pre-operative examination Bloody nose Encounter for pre-operative examination Screening for colorectal cancer Medical History (Updated 05/16/25 @ 11:52 by Background Daemon) Hypoxia Acute electrocardiography changes Right upper lobe pneumonia 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 - breaks out more in summer - uses loratidine and clobetasol cream Vertigo only in them qam - taking meclizine Degenerative disc disease cervical Osteoarthritis GERD (gastroesophageal reflux disease) Memory loss Myocardial Infarction 1996 - severe chest pain - life lighted to [facility] - Cardiac Cath - no stents - 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 Hypertension Hyperlipidemia Chronic obstructive pulmonary disease no Ox - uses inhalers as needed Lung cancer CHEMO 05/30 - 09/2008 - Follows [facility] - q6m - recent scan 11/2021 showed spot on long - monitoring Surgical History Hx of vasectomy History of esophagogastroduodenoscopy (EGD) History of colonoscopy History of herniorrhaphy History of tooth extraction History of cardiac cath 1996 post [place] - (NO STENTS) [facility] - 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 History of lobectomy of lung LEFT LOBECTOMY 04/2008 d/t lung cancer Family History Other No pertinent family history Social History Smoking Status: Former smoker Tobacco Type: Cigarettes Cigarettes Per Day: "WILL SMOKE A PUFF EVERY ONCE IN A WHILE WHEN I GET NERVOUS"; Second Hand Exposure: No; Do You Dip or Chew Tobacco: No; Hx Alcohol Use: No Hx Substance Use: No Preferred Language: Belarusian Communication Ability: Effective Deputy K 9 Required: No Beliefs That Will Affect Care: None Current Living Situation: Spouse Feels Safe at Home: Yes Assistive Devices: Glasses Review of Systems Review of Systems: all systems reviewed and are unremarkable except as noted below Physical Exam Physical Exam: Lying in bed with acute distress due to BiPAP and shortness of breath Constitutional: + ill appearing and average body habitus Eyes: PERRL, conjunctivae normal, anicteric sclerae ENMT: external ear and nose normal, oropharynx normal Neck: trachea midline, no thyromegaly Respiratory: + respiratory distress ( moderate to sev ere respiratory distress at rest) Auscultation: + breath sounds absent ( left lung due to pneumonectomy) and + diminished lung sounds ( The right side has decreased breath sound with wheezing) Cardiovascular: Rate/Rhythm: regular rate, regular rhythm and + tachycardic Heart Sounds: normal S1 and normal S2; no murmur Extremities: no edema Gastrointestinal (Abdomen): Inspection/Auscultation: normal bowel sounds; abdomen not distended Percussion/Palpation: abdomen soft; abdomen nontender Musculoskeletal: no acute arthritis involving any of the joint Neurologic: normal touch/pain/proprioception and moves all extremities; no focal motor deficits Lymphatic: no cervical or axillary lymphadenopathy Results & Data Results & Data Vital Signs (Past 12 Hours) Vital Signs Temp Pulse Pulse Resp BP BP Pulse Ox 05/16/25 10:55 105 H 35 H 145/84 H 98 05/16/25 09:29 116 H 05/16/25 09:26 117 H 42 H 87 L 05/16/25 09:10 37.1 C 113 H 38 H 132/76 98 O2 Del Method O2 Flow Rate 05/16/25 10:55 Nasal Cannula 4 05/16/25 09:29 05/16/25 09:26 Room Air 05/16/25 09:10 Nebulizer 8 Laboratory Results Short CBC 05/16/25 Range/Units 09:17 WBC 11.54 H (4.8-10.8) K/ul Hgb 18.5 H (14.0-18.0) g/dL Hct 55.2 H (42.0-52.0) % Plt Count 294 (130-400) K/uL BMP 05/16/25 09:17 Sodium 136 Potassium 4.6 Chloride 95 L Carbon Dioxide 35 H BUN 9 Creatinine 0.84 Glucose 123 H Calcium 9.1 Liver Function 05/16/25 Range/Units 09:17 Total Bilirubin 0.6 (0.2-1.0) mg/dl AST 26 (13-39) U/L ALT 27 (7-52) U/L Alkaline Phosphatase 101 (34-104) U/L Albumin 4.2 (3.4-5.0) gm/dl Medications Administered Current Inpatient Medications Heparin Sodium (Porcine) (Heparin Sod 5,000 Unit/0.5 Ml Vial) 5,000 units SQ Q12 ALMITA Stop: 06/15/25 20:59 Code Status & VTE Plan VTE Prophylaxis Plan VTE Prophylaxis will be ordered: Yes
[2025-05-16] MEDS ORDERED: CLOBETASOL PROPIONATE 0.05% OINT 15 GM TUBE EXT PRN (11:57)
[2025-05-16] MEDS ORDERED: DICLOFENAC SOD 1% GEL 100 GM TUBE EXT PRN (11:57)
[2025-05-16] MEDS ORDERED: CYCLOBENZAPRINE HCL 10 MG TAB PO PRN (11:57)
[2025-05-16] MEDS ORDERED: ALBUTEROL 0.083% NEBU SOLN 3 ML VIAL NEB PRN (11:57)
[2025-05-16] MEDS ORDERED: ALBUTEROL HFA 8 GM INHALER INH PRN (11:57)
[2025-05-16] MEDS ORDERED: TROLAMINE SALICYLATE 10% CRM 255 APPLN/85 GM TUBE EXT PRN (12:34)
[2025-05-16] MEDS: LORazepam 1 MG/1 ML SYR ED Inj Use IV STA (12:49)
--- NOTE | 2025-05-16 13:00 | Electrocardiogram Report ---
Test Reason : Blood Pressure : */* mmHG Vent. Rate : 121 BPM Atrial Rate : 121 BPM P-R Int : 162 ms QRS Dur : 68 ms QT Int : 304 ms P-R-T Axes : 68 -47 23 degrees QTcB Int : 431 ms Sinus tachycardia Possible Left atrial enlargement Left axis deviation Poor R wave progression, consider anterior DC vs. lead placement vs. LVH Low voltage QRS Abnormal ECG When compared with ECG of 13-Sep-2022 09:22, Inverted T waves have replaced nonspecific T wave abnormality in Anterior leads Confirmed by Jose Cutler ([id number]) on 05/16/2025 12:59:29 PM Referred By: REFERRED SELF Confirmed By: Jose Cutler
[2025-05-16] MEDS: ALBUT/IPRATROP 3MG/0.5MG NEB 3 ML VIAL NEB SCH (13:01)
[2025-05-16 13:30] LABS: Base Excess VBG 5.6 mEq/L; HCO3 VBG 39 mmol/L; Oxygen Saturation VBG 78.7 %; PCO2 VBG 121 mmHg (38-50); PO2 VBG 51 mmHg; pH VBG 7.12 (7.36-7.41)
[2025-05-16] MEDS: NITROGLYCERIN 2% OINTMENT 30GM TUBE EXT STA (13:30)
[2025-05-16] MEDS: REMOVE NITRO-DUR PATCH SCH (13:34)
[2025-05-16] MEDS ORDERED: BENZONATATE 100 MG CAPSULE PO SCH (14:00)
--- NOTE | 2025-05-16 14:54 | Communication Note ---
Date of Service: May 16, 2025 The patient was seen in medical telemetry unit at around 2:52 PM He is keeping the BiPAP and is more alert and nodding the head that he is feeling better Blood pressure and pulse have improved Strongly advised to continue BiPAP Discussed again in detail with the family members and answered all of their questions. DR Samuel Buck
--- NOTE | 2025-05-16 15:04 | Pulmonary Consultation ---
Date of Consultation May 16, 2025 Assessment & Plan (1) Influenza: (2) Acute respiratory failure with hypoxia and hypercarbia: (3) Chronic obstructive pulmonary disease: Plan Impression: 75-year-old male with prior history of lung cancer status postpneumonectomy admitted now with influenza and hypoxemic and hypercarbic respiratory failure. He failed an initial trial of noninvasive positive pressure ventilation and has been put back on BiPAP. He adamantly declines intubation mechanical ventilation and his family is in agreement. Recommendations: 1. Hypoxemic hypercarbic respiratory failure: Unclear how responsive the patient is going to be to noninvasive positive pressure ventilation but seems reasonable to continue to try until the patient refuses. He is tolerating it reasonably well currently. The only other option moving forward would be to pursue intubation mechanical ventilation which would be risky and potentially entail tracheostomy which the patient and family would like to avoid at all costs. This would result in a quality of life unacceptable to the patient. He is reiterated such on multiple occasions. 2. Advanced COPD: Continue bronchodilators in the form of nebulized budesonide and Perforomist. Patient is unable to tolerate dry powder inhaler currently and Breo will be discontinued 3. Influenza: Continue Tamiflu. Steroids relatively contraindicated for viral pneumonitis however given the lack of parenchymal abnormalities and the patient severe COPD, may be reasonable to continue with low-dose steroids for now. Overall the patient's prognosis is severely guarded. His family is aware and I made the patient aware that this may be a terminal event. They understand and express understanding. They are in agreement with the plan as outlined The patient is critically ill with a significant possibility of clinical decline and/or . A total of 40 minutes of critical care time were spent in evaluation management and coordination of care of this patient including discussion with the admitting hospitalist and discussion with the family History of Present Illness Attending Physician: Seymour Buck MD History of Present Illness Asked by hospitalist to assist in evaluation management this patient with hypoxemic hypercarbic respiratory failure and influenza. History is obtained from discussion with the patient as well as discussion with family members at the bedside. Patient is a 75-year-old male with a prior history of pneumonectomy over a decade ago. He is primarily followed through [facility] so we have minimal records available to review. His lung resection was performed back in [address] Mel[place] in [place]. 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 Does not appear that any adjuvant chemotherapy was administered and the patient is followed at the [facility]. He is intermittently used tobacco products since his surgery. He has not required supplemental oxygen. He had worsening shortness of breath over the last several days and EMS was summoned. The patient was profoundly hypoxemic on arrival. He was treated with steroids and bronchodilators by EMS and brought to the emergency room. He was febrile. Blood gas showed hypercarbia with a pCO2 in the 70s. He was placed on BiPAP and then weaned off. Follow-up blood gas demonstrated pCO2 that did increase to 112 and he was placed back on BiPAP. The patient and family declined intubation. The patient reportedly has a significant history of claustrophobia so his ability to remain compliant with BiPAP may be suspect. Despite application of noninvasive positive pressure ventilation, the patient continues to demonstrate tachypnea, and increased work of breathing. Allergies Allergy/AdvReac Type Severity Reaction Status Date / Time oxycodone Allergy Intermediate Hives Verified 05/16/25 11:59 shellfish derived Allergy Intermediate Hives Verified 05/16/25 11:59 shrimp Allergy Intermediate hives Verified 05/16/25 11:59 Home Medications Medication Instructions Recorded Confirmed Type albuterol sulfate 90 mcg/actuation 2 puff inhalation QID PRN 04/01/18 05/16/25 History aerosol inhaler (Ventolin HFA) Shortness Of Breath lisinopril 5 mg tablet 5 mg PO HS 04/01/18 05/16/25 History nitroglycerin 0.2 mg/hr 1 patch topical HS 04/01/18 05/16/25 History transdermal 24 hour patch metoprolol tartrate 50 mg tablet 50 mg PO BID 09/21/18 05/16/25 History aspirin 81 mg tablet,delayed 81 mg PO DAILY 09/12/22 05/16/25 History release benzonatate 100 mg capsule 200 mg PO TID PRN Cough 09/12/22 05/16/25 History calcium 500 mg (as 1 tab PO DAILY 09/12/22 05/16/25 History carbonate)-vitamin D3 5 mcg (200 unit) tablet (Calcium 500 + D) fluticasone 500 mcg-salmeterol 50 1 inh inhalation BID 09/12/22 05/16/25 History mcg/dose blistr powdr for inhalation guaifenesin 200 mg tablet 200 mg PO Q6 PRN cough/congestion 09/12/22 05/16/25 History magnesium oxide 420 mg tablet 420 mg PO BID 09/12/22 05/16/25 History tiotropium bromide 2.5 2 puff inhalation DAILY 09/12/22 05/16/25 History mcg/actuation mist for inhalation atorvastatin 80 mg tablet 40 mg PO HS 05/16/25 05/16/25 History carboxymethylcellulose sodium 0.5 1 drp ophthalmic (eye) TID 05/16/25 05/16/25 History % eye drops carboxymethylcellulose sodium 1 % 1 drp ophthalmic (eye) HS 05/16/25 05/16/25 History eye gel in a dropperette cyanocobalamin (vitamin B-12) 500 500 mcg PO DAILY 05/16/25 05/16/25 History mcg tablet food supplemt, lactose-reduced 1 ea PO DAILY 05/16/25 05/16/25 History methyl salicylate 15 %-menthol 10 1 applic topical TID PRN Pain 05/16/25 05/16/25 History % topical cream (Muscle Rub) multivitamin with minerals 1 cap PO DAILY 05/16/25 05/16/25 History pantoprazole 40 mg tablet,delayed 40 mg PO DAILY 05/16/25 05/16/25 History release pregabalin 150 mg capsule 150 mg PO BID 05/16/25 05/16/25 History Patient History Medical History (Updated 05/16/25 @ 11:52 by Background Daemon) Hypoxia Acute electrocardiography changes Right upper lobe pneumonia 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 - breaks out more in summer - uses loratidine and clobetasol cream Vertigo only in them qam - taking meclizine Degenerative disc disease cervical Osteoarthritis GERD (gastroesophageal reflux disease) Memory loss Myocardial Infarction 1996 - severe chest pain - life lighted to [facility] - Cardiac Cath - no stents - 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 Hypertension Hyperlipidemia Chronic obstructive pulmonary disease no Ox - uses inhalers as needed Lung cancer CHEMO 05/30 - 09/2008 - Follows [facility] - q6m - recent scan 11/2021 showed spot on long - monitoring Surgical History Hx of vasectomy History of esophagogastroduodenoscopy (EGD) History of colonoscopy History of herniorrhaphy History of tooth extraction History of cardiac cath 1996 post [facility] - (NO STENTS) [place] - 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 History of lobectomy of lung LEFT LOBECTOMY 04/2008 d/t lung cancer Family History Other No pertinent family history Social History Smoking Status: Former smoker Tobacco Type: Cigarettes Cigarettes Per Day: "WILL SMOKE A PUFF EVERY ONCE IN A WHILE WHEN I GET NERVOUS"; Second Hand Exposure: No; Do You Dip or Chew Tobacco: No; Hx Alcohol Use: No Hx Substance Use: No Preferred Language: Romanian Communication Ability: Effective It Support Engineer Required: No Beliefs That Will Affect Care: None Current Living Situation: Spouse Feels Safe at Home: Yes Assistive Devices: Glasses Review of Systems Review of Systems: Unobtainable due to respiratory distress and fullface BiPAP Physical Exam Physical Exam: Lying in bed with acute distress due to BiPAP and shortness of breath Constitutional: + ill appearing and average body habitus Eyes: PERRL, conjunctivae normal, anicteric sclerae ENMT: external ear and nose normal, oropharynx normal Neck: trachea midline, no thyromegaly Respiratory: + respiratory distress ( moderate to sev ere respiratory distress at rest) Auscultation: + breath sounds absent ( left lung due to pneumonectomy) and + diminished lung sounds (Breath sounds diminished) Cardiovascular: Rate/Rhythm: regular rate, regular rhythm and + tachycardic Heart Sounds: normal S1 and normal S2; no murmur Extremities: no edema Gastrointestinal (Abdomen): Inspection/Auscultation: normal bowel sounds; a bdomen not distended Percussion/Palpation: abdomen soft; abdomen nontender Musculoskeletal: no acute arthritis involving any of the joint Neurologic: moves all extremities; no focal motor deficits Lymphatic: no cervical or axillary lymphadenopathy Results & Data Results & Data Vital Signs (Past 12 Hours) Vital Signs Temp Pulse Pulse Resp BP BP Pulse Ox 05/16/25 14:00 106 H 33 H 128/87 96 05/16/25 13:01 113 H 25 H 98 05/16/25 13:01 112 H 26 H 98 05/16/25 12:00 121 H 28 H 184/112 H 96 05/16/25 10:55 105 H 35 H 145/84 H 98 05/16/25 09:29 116 H 05/16/25 09:26 117 H 42 H 87 L 05/16/25 09:10 37.1 C 113 H 38 H 132/76 98 O2 Del Method O2 Flow Rate FiO2 05/16/25 14:00 BiPAP 05/16/25 13:01 40 05/16/25 13:01 BiPAP 40 05/16/25 12:00 Nasal Cannula 3 05/16/25 10:55 Nasal Cannula 4 05/16/25 09:29 05/16/25 09:26 Room Air 05/16/25 09:10 Nebulizer 8 Critical Care Results & Data Vital Signs (Past 12 Hours) Vital Signs Temp Pulse Pulse Resp BP BP Pulse Ox 05/16/25 14:00 106 H 33 H 128/87 96 05/16/25 13:01 113 H 25 H 98 05/16/25 13:01 112 H 26 H 98 05/16/25 12:00 121 H 28 H 184/112 H 96 05/16/25 10:55 105 H 35 H 145/84 H 98 05/16/25 09:29 116 H 05/16/25 09:26 117 H 42 H 87 L 05/16/25 09:10 37.1 C 113 H 38 H 132/76 98 O2 Del Method O2 Flow Rate FiO2 05/16/25 14:00 BiPAP 05/16/25 13:01 40 05/16/25 13:01 BiPAP 40 05/16/25 12:00 Nasal Cannula 3 05/16/25 10:55 Nasal Cannula 4 05/16/25 09:29 05/16/25 09:26 Room Air 05/16/25 09:10 Nebulizer 8 Lab & Micro Results (Past 24 Hours) RBC 6.00 M/uL (4.70-6.10) 05/16/25 WBC 11.54 K/ul (4.8-10.8) H 05/16/25 Hgb 18.5 g/dL (14.0-18.0) H 05/16/25 Hct 55.2 % (42.0-52.0) H 05/16/25 MCV 92.0 fL (80.0-100.0) 05/16/25 MCH 30.8 pg (25.0-34.0) 05/16/25 MCHC 33.5 g/dL (32.0-36.0) 05/16/25 RDW Standard Deviation 46.4 fL (36.4-46.3) H 05/16/25 RDW Coefficient of Variation 13.7 % (11.5-14.5) 05/16/25 Plt Count 294 K/uL (130-400) 05/16/25 MPV 9.9 fL (9.4-12.4) 05/16/25 Neutrophils (%) (Auto) 83.1 % 05/16/25 Lymphocytes (%) (Auto) 4.2 % 05/16/25 Monocytes # (Auto) 1.25 K/uL (0.11-0.59) H 05/16/25 Eosinophils # (Auto) 0.11 K/uL (0.00-0.50) 05/16/25 Immature Granulocyte % (Auto) 0.3 % 05/16/25 Neutrophils # (Auto) 9.58 K/uL (1.40-6.50) H 05/16/25 Lymphocytes # (Auto) 0.49 K/uL (1.20-3.40) L 05/16/25 Monocytes # (Auto) 1.25 K/uL (0.11-0.59) H 05/16/25 Eosinophils # (Auto) 0.11 K/uL (0.00-0.50) 05/16/25 Basophils # (Auto) 0.07 K/uL (0.00-0.20) 05/16/25 Immature Granulocyte # (Auto) 0.04 K/uL (0.01-0.20) 5 Na 136 mmol/L (136-145) 05/16/25 K 4.6 mmol/L (3.5-5.1) 05/16/25 Cl 95 mmol/L (98-107) L 05/16/25 CO2 35 mmol/L (21-32) H 05/16/25 Anion Gap 6 (3-11) 05/16/25 BUN 9 mg/dl (6-23) 05/16/25 Creatinine 0.84 mg/dl (0.6-1.4) 05/16/25 BUN/Creatinine Ratio 10.7 (10-20) 05/16/25 Glu 123 mg/dl (70-99(Fasting)) H 05/16/25 Ca 9.1 mg/dl (8.6-10.3) 05/16/25 Total Bilirubin 0.6 mg/dl (0.2-1.0) 05/16/25 AST 26 U/L (13-39) 05/16/25 ALT 27 U/L (7-52) 05/16/25 Alkaline Phosphatase 101 U/L (34-104) 05/16/25 TP 7.6 gm/dl (6.0-8.3) 05/16/25 Albumin 4.2 gm/dl (3.4-5.0) 05/16/25 Globulin 3.4 gm/dl (2.5-4.0) 05/16/25 Albumin/Globulin Ratio 1.2 (0.9-2) 05/16/25 Mg 2.0 mg/dl (1.7-2.4) 05/16/25 09:17 Calcium Level 9.1 mg/dl (8.6-10.3) 05/16/25 09:17 Prothromb Time International Ratio 1.1 (0.9-1.1) 05/16/25 09:1 7 Venous Blood pH 7.12 (7.36-7.41) L 05/16/25 13:22 Venous Blood Partial Pressure CO2 121 mmHg (38-50) H 05/16/25 1 3:22 Venous Blood Partial Pressure O2 51 mmHg 05/16/25 13:22 Venous Blood HCO3 39 mmol/L 05/16/25 13:22 Venous Blood Base Excess 5.6 mEq/L 05/16/25 13:22 Venous Blood Oxygen Saturation 78.7 % 05/16/25 13:22 Diagnostic Findings (Past 24 Hours) Chest CTA 05/16/25 08:59 CT angio chest PE protocol CT DOSE: 371.73 mGy.cm HISTORY: Dyspnea, hypoxia. TECHNIQUE: Multiple CTA images of the chest were obtained after the intravenous administration of 112 ml Optiray. Coronal and sagittal MIPS were obtained from the axial data set and were submitted for review. All measurements were obtained according to NASCET criteria. A dose lowering technique was utilized adhering to the principles of ALARA. COMPARISON STUDY: 09/12/2022 FINDINGS: Stable left pneumonectomy with stable postoperative fluid at the left hemithorax. Stable shift of the heart and mediastinum to the left with compensatory hyperexpansion of the right lung. There is motion artifact due to difficulty breath holding. There are multiple interval scattered reticular nodular opacities measuring up to 8 mm right upper lobe series 4 image 193. No lobar consolidation or pleural effusion. No pneumothorax. No enlarged adenopathy. No pericardial effusion. There are coronary artery calcifications. No thoracic aortic dissection or aneurysm. No pulmonary embolism seen. No acute osseous findings. IMPRESSION: 1. No pulmonary embolism seen. 2. Multiple interval scattered small reticular nodular opacities throughout the right lung likely represent infectious/inflammatory etiology. Recommend follow- up chest CT in 3 months to make sure that this resolves without underlying pulmonary nodule. ACT 112: Positive. There are findings on this exam that require communication between the performing entity and the patient following Patient Test Result Information Act ([place] Act 112) guidelines. The above report was generated using voice recognition software. It may contain grammatical, syntax or spelling errors. Electronically signed by: Rubin Flores M.D. 05/16/2025 10:20 AM Chest X-Ray 05/16/25 08:59 XR chest 1V portable CLINICAL HISTORY: Dyspnea COMPARISON STUDY: 09/12/2022 FINDINGS: Stable prior left pneumonectomy with complete opacification of the left hemithorax. Stable shift of the heart and mediastinum to the left with compensatory hyperexpansion of the right lung. The right lung shows no consolidation or pleural effusion. No pneumothorax. IMPRESSION: No acute findings. ACT 112: Negative or not required by law. Electronically signed by: Rubin Flores M.D. 05/16/2025 9:18 AM I & O Totals 24 Hours 05/15/25 05/16/25 05/17/25 06:59 06:59 06:59 Intake Total 500 / 500 Balance 500 / 500 Cumulative 05/16/25 08:52 thru 05/16/25 12:53 Intake Total 500 Balance 500 RT Ventilator Mngmt (Last Documented) Ventilator Ordered Settings Respiratory Rate 33 05/16/25 14:00 Fraction of Inspired Oxygen 40 05/16/25 13:01 Ventilator - PT Measurements Respiratory Rate 33 PG Care Time/CCT Total # of Minutes Spent Total Time Spent with Patient: Total time spent is greater than 50% in coordination of care (as documented) at patient's floor/unit and/or counseling patient: Coding Level of Care Code 52678 CRITICAL CARE 1ST 30-74M Diagnoses Influenza J11.1 Acute respiratory failure with hypoxia and hypercarbia J96.01; J96.02 Chronic obstructive pulmonary disease J44.9
[2025-05-16] MEDS: ARTIFICIAL TEARS OP SCH (15:13)
[2025-05-16 17:09] LABS: Base Excess VBG 1.2 mEq/L; HCO3 VBG 35 mmol/L; Oxygen Saturation VBG 81.5 %; PCO2 VBG 118 mmHg (38-50); PO2 VBG 54 mmHg; pH VBG 7.08 (7.36-7.41)
[2025-05-16] MEDS: METOPROLOL TARTRATE 1 MG/ML VIAL IV STA (19:41)
[2025-05-16] MEDS: BUDESONIDE 0.5 MG/2 ML VIAL (PULMICORT) NEB SCH (19:53)
[2025-05-16] MEDS: FORMOTEROL 20 MCG/2 ML VIAL NEB SCH (19:53)
[2025-05-16] MEDS: ATORVASTATIN 40 MG TAB PO SCH (20:31)
[2025-05-16] MEDS: MAGNESIUM OXIDE 400 MG TAB PO SCH (20:32)
[2025-05-16] MEDS: OSELTAMIVIR PHOSPHATE 75 MG CAP PO SCH (20:32)
[2025-05-16] MEDS: PREGABALIN 150 MG CAP PO SCH (20:32)
[2025-05-16 20:33] LABS: Oxygen Saturation VBG 89.8 %; PCO2 VBG > 125 mmHg (38-50); PO2 VBG 68 mmHg; pH VBG 7.03 (7.36-7.41)
[2025-05-16] MEDS ORDERED: METOPROLOL TARTRATE 25 MG TAB PO SCH (21:00)
[2025-05-16] MEDS ORDERED: PREGABALIN 150 MG CAP PO SCH (21:00)
[2025-05-16] MEDS ORDERED: AMMONIUM LACTATE 12% LOTION 225 GM BTL EXT SCH (21:00)
[2025-05-16] MEDS ORDERED: METOPROLOL TARTRATE 50 MG TAB PO SCH (21:00)
[2025-05-16] MEDS ORDERED: NITROGLYCERIN 0.2 MG/HR PATCH TD SCH (21:00)
[2025-05-16] MEDS ORDERED: CHOLECALCIFEROL 25 MCG (1000 UNITS) TAB PO SCH (21:00)
[2025-05-16] MEDS: HEPARIN SOD 5,000 UNIT/0.5 ML VIAL SQ SCH (21:07)
[2025-05-16] MEDS: IPRATROPIUM BROMIDE NEB SOLN 0.02% 0.5MG/2.5ML VIAL INH SCH (23:06)
[2025-05-16] MEDS: LEVALBUTEROL 1.25 MG/3 ML NEB NEB SCH (23:06)
[2025-05-16 23:09] LABS: Base Excess VBG 3.0 mEq/L; HCO3 VBG 36 mmol/L; Oxygen Saturation VBG 95.0 %; PCO2 VBG 111 mmHg (38-50); PO2 VBG 72 mmHg; pH VBG 7.12 (7.36-7.41)
[2025-05-17] MEDS ORDERED: ACETAMINOPHEN 1,000 MG/100 ML VIAL IV PRN (00:24)
[2025-05-17] MEDS: ACETAMINOPHEN 1,000 MG/100 ML VIAL IV STA (00:29)
[2025-05-17 07:20] VITALS: O2SAT 99
[2025-05-17 07:24] VITALS: BP 142/71; PULSE 133; TEMP 97.4
[2025-05-17 07:45] LABS: Anion Gap 6.0 (3-11); Blood Urea Nitrogen 24.0 mg/dl (6-23); Calcium 9.2 mg/dl (8.6-10.3); Carbon Dioxide 33.0 mmol/L (21-32); Chloride 100.0 mmol/L (98-107); Creatinine Clr Calc Pharmacy 62.6 ml/min; Glucose 147.0 mg/dl (70-99(Fasting)); Magnesium 2.3 mg/dl (1.7-2.4); Potassium 5.1 mmol/L (3.5-5.1); Sodium 139.0 mmol/L (136-145)
[2025-05-17 07:50] LABS: Hematocrit (blood only) 50.2 % (42.0-52.0); Hemoglobin 16.1 g/dL (14.0-18.0); Immature Granulocytes # (auto) 0.06 K/uL (0.01-0.20); Immature Granulocytes % (auto) 0.4 %; Mean Corpuscular Hemoglobin 31.0 pg (25.0-34.0); Mean Corpuscular Volume 96.7 fL (80.0-100.0); Platelet Count 254 K/uL (130-400); RDW Standard Deviation 49.1 fL (36.4-46.3); Red Blood Count 5.19 M/uL (4.70-6.10); White Blood Count 15.45 K/ul (4.8-10.8)
[2025-05-17] MEDS: CALCIUM 600MG + VIT D 400 IU TAB PO SCH (08:30)
[2025-05-17] MEDS: CYANOCOBALAMIN (B-12) 500 MCG TABLET PO SCH (08:30)
[2025-05-17] MEDS: ASPIRIN 81 MG ECTAB PO SCH (08:30)
[2025-05-17] MEDS: METOPROLOL TARTRATE 50 MG TAB PO SCH (08:30)
[2025-05-17] MEDS: CEROVITE ADV FORMULA TAB PO SCH (08:30)
[2025-05-17] MEDS: UMECLIDINIUM BROMIDE 62.5MCG/BLISTER 7 PUFFS/INHALER INH SCH (08:30)
[2025-05-17] MEDS ORDERED: PREGABALIN 75 MG CAP PO SCH (09:00)
[2025-05-17] MEDS ORDERED: NON-FORMULARY MEDICATION (Food Supplemt, Lactose-Reduced Liquid) PO SCH (09:00)
[2025-05-17] MEDS ORDERED: FLUTICASONE/VILANTEROL 100/25MCG 14 PUFFS/INHALER INH SCH (09:00)
[2025-05-17] MEDS ORDERED: LORazepam Inj 0.5 MG in SYRINGE 0.25 ML IV PRN (09:15)
[2025-05-17] MEDS ORDERED: ONDANSETRON INJ 2 MG/ML 2 ML VIAL IV PRN (09:15)
[2025-05-17] MEDS ORDERED: LORazepam Inj 1 MG in SYRINGE 0.25 ML IV PRN ×2 (09:15→11:24)
[2025-05-17] MEDS ORDERED: GLYCOPYRROLATE 0.2 MG/ML VIAL IV PRN (09:15)
[2025-05-17] MEDS: MoRPHine SULFATE 2 MG/ML CARP IV PRN (09:35)
[2025-05-17] MEDS: LORazepam Inj 0.5 MG in SYRINGE 0.25 ML IV SCH (09:50)
--- NOTE | 2025-05-17 10:26 | Hospitalist Progress Note ---
Date of Service May 17, 2025 Assessment & Plan (1) Acute respiratory failure with hypoxia and hypercarbia: (2) Influenza: (3) Elevated troponin: (4) GERD (gastroesophageal reflux disease): (5) Hypertension: (6) Hyperlipidemia: (7) Chronic obstructive pulmonary disease: (8) Lung cancer: Plan: Influenza A COPD exacerbation Acute Hypoxic hypercapnic respiratory failure History of lung cancer status post left pneumonectomy Patient presented to the hospital with shortness of breath for the last several days Found to be 64% in room air on admission; he was also found to have severe acute Hypoxic hypercapnic respitory failure; started on trial of BiPAP. No significant improvement noted on BiPAP overnight. Based on goals of care discussion; patient changed over to comfort care measures. Ativan, morphine as needed. BiPAP to be taken off for comfort. Time spent evaluating patient, direct bedside care, chart review, placing orders, interpretation of diagnostic studies, discussion with consultants, elissa ent, and family members, as well as other required patient management activities is 75 minutes Please note the above document was generated using voice recognition software. It may contain grammatical, syntax or spelling errors. Any formal questions or concerns about the content, text or information contained within the body of this dictation should be directly addressed to the provider for clarification Admission and Anticipated Discharge Date Admission Date: May 16, 2025 Subjective Patient seen at bedside; patient appears to be in significant respiratory distress despite being on BiPAP. He has mittens on; he is disoriented. He appears to be in significant discomfort. Goals of care conversation done with family at bedside; his , 2 sons and other family members were present. I discussed that patient continues to be in significant distress despite being on BiPAP. He has been persistently acidotic due to CO2 retention; has alternation of mentation. After discussion; they agreed on taking of the BiPAP; starting comfort care measures including morphine/Ativan. BiPAP to be taken off. Review of Systems Review of Systems: Unobtainable due to cognitive status Physical Exam Physical Exam: Constitutional: On BiPAP; significant respiratory distress. Respiratory: No breath sounds on left lung; minimal urine entry on right side Cardiovascular: RRR, no murmur, no edema Vessels: no JVD or carotid bruit Abdomen: normal bowel sounds, soft, Neurologic: Appears agitated, uncomfortable. Results & Data Results & Data Vital Signs (Past 12 Hours) Vital Signs Temp Pulse Pulse Pulse Resp BP Pulse Ox 05/17/25 09:55 05/17/25 07:23 36.3 C L 133 H 40 H 142/71 H 99 05/17/25 07:21 132 H 40 H 99 05/17/25 07:17 132 H 40 H 99 05/17/25 06:45 114 H 05/17/25 03:45 35.8 C L 116 H 30 H 100/52 L 94 05/17/25 01:50 112 H 27 H 96 05/17/25 01:50 112 H 27 H 96 05/17/25 01:42 114 H 05/16/25 23:36 108 H 25 H 98 05/16/25 23:36 108 H 25 H 98 05/16/25 23:31 36.9 C 109 H 30 H 119/66 98 05/16/25 22:41 O2 Del Method FiO2 05/17/25 09:55 BiPAP 05/17/25 07:23 BiPAP 05/17/25 07:21 BiPAP 45 05/17/25 07:17 45 05/17/25 06:45 05/17/25 03:45 BiPAP 05/17/25 01:50 45 05/17/25 01:50 BiPAP 45 05/17/25 01:42 05/16/25 23:36 45 05/16/25 23:36 BiPAP 45 05/16/25 23:31 BiPAP 05/16/25 22:41 BiPAP
--- NOTE | 2025-05-17 12:23 | Pulmonology Progress Note ---
Date of Service May 17, 2025 Assessment & Plan (1) Influenza: (2) Acute respiratory failure with hypoxia and hypercarbia: (3) Chronic obstructive pulmonary disease: Plan Impression: 75-year-old male with prior history of lung cancer status postpneumonectomy admitted now with influenza and hypoxemic and hypercarbic respiratory failure. He failed an initial trial of noninvasive positive pressure ventilation and has been put back on BiPAP. He adamantly declines intubation mechanical ventilation and his family is in agreement. Recommendations: 1. Hypoxemic hypercarbic respiratory failure: Patient on Bipap and significant non-sustainable work of breathing. Hospitalist at bedside discussed goals of care. Family all in agreement to make patient transition to comfort measure only. Will ensure patient comfort with morphine and lorazepam. 2. Advanced COPD: Will hold inhalers as patient transitions to comfort care. 3. Influenza: Will D/C Tamiflu and steroids at this time. 35 minutes is the time spent reviewing the chart, obtaining history, performing the physical exam, and discussing care with bedside nurse and patient's family. Admission and Anticipated Discharge Date Admission Date: May 16, 2025 Subjective Patient with increased work of breathing despite Bipap support. Patient stuporous and uncomfortable. Family discussion with Hospitalist attending regarding goals of care occurred with all family in agreement to pivot care to comfort measures. Review of Systems 2 Review of Systems: All systems reviewed & are unremarkable except as noted in HPI & below Physical Exam 2 Physical Exam: VITALS: Reviewed. WEIGHT/BMI reviewed. GEN: Lying in bed restless. Not following commands or verbalizing. PSYCH: Stuporous HEENT -Head: NC/AT; -Eyes: PERRL, EOMI. No discharge or redn ess; -Ears: External ears are normal. -Nose: Normal nares. NECK: Supple, with no masses. CV: Tachycardic, S1/S2, no m/r/g. LUNGS: Tachypneic with poor ventilation. Diminished breath sounds in all quadrants. ABD: N/A : N/A SKIN: Warm, well perfused. No skin rashes or abnormal lesions. MSK: No deformities. EXT: No clubbing, cyanosis, or edema. NEURO: Antigravity in all extremities. no focal deficit noted. Results & Data Results & Data Vital Signs (Past 12 Hours) Vital Signs Temp Pulse Pulse Resp BP Pulse Ox O2 Del Method 05/17/25 09:55 BiPAP 05/17/25 07:23 36.3 C L 133 H 40 H 142/71 H 99 BiPAP 05/17/25 07:21 132 H 40 H 99 BiPAP 05/17/25 07:17 132 H 40 H 99 05/17/25 06:45 114 H 05/17/25 03:45 35.8 C L 116 H 30 H 100/52 L 94 BiPAP 05/17/25 01:50 112 H 27 H 96 05/17/25 01:50 112 H 27 H 96 BiPAP 05/17/25 01:42 114 H FiO2 05/17/25 09:55 05/17/25 07:23 05/17/25 07:21 45 05/17/25 07:17 45 05/17/25 06:45 05/17/25 03:45 05/17/25 01:50 45 05/17/25 01:50 45 05/17/25 01:42 Laboratory Results 05/17/25 06:46 05/17/25 06:46 Abnormal Lab Results 05/16/25 05/16/25 05/16/25 16:51 20:20 23:00 WBC RBC Hgb Hct MCV MCH MCHC RDW Std Deviation RDW Coeff of Deng Plt Count MPV Immature Gran % (Auto) Neut % (Auto) Lymph % (Auto) [place] % (Auto) Eos % (Auto) Baso % (Auto) Neut # (Auto) Lymph # (Auto) [place] # (Auto) Eos # (Auto) Baso # (Auto) Immature Gran # (Auto) VBG pH 7.08 L 7.03 L 7.12 L VBG pCO2 118 H > 125 H 111 H VBG pO2 54 68 72 VBG HCO3 35 Not Reportable 36 VBG O2 Saturation 81.5 89.8 95.0 VBG Base Excess 1.2 Not Reportable 3.0 Sodium Potassium Chloride Carbon Dioxide Anion Gap BUN Creatinine Est Cr Clr Drug Dosing eGFR BUN/Creatinine Ratio Glucose Calcium Phosphorus Magnesium Troponin I High Sens 51.6 H* D 05/17/25 06:46 WBC 15.45 H RBC 5.19 Hgb 16.1 Hct 50.2 MCV 96.7 D MCH 31.0 MCHC 32.1 RDW Std Deviation 49.1 H RDW Coeff of Deng 13.7 Plt Count 254 MPV 10.1 Immature Gran % (Auto) 0.4 Neut % (Auto) 87.5 Lymph % (Auto) 2.3 [place] % (Auto) 9.5 Eos % (Auto) 0.0 Baso % (Auto) 0.3 Neut # (Auto) 13.52 H Lymph # (Auto) 0.36 L [place] # (Auto) 1.47 H Eos # (Auto) 0.00 Baso # (Auto) 0.04 Immature Gran # (Auto) 0.06 VBG pH VBG pCO2 VBG pO2 VBG HCO3 VBG O2 Saturation VBG Base Excess Sodium 139 Potassium 5.1 Chloride 100 Carbon Dioxide 33 H Anion Gap 6 BUN 24 H Creatinine 0.82 Est Cr Clr Drug Dosing 62.6 eGFR 92.18 BUN/Creatinine Ratio 29.3 H Glucose 147 H Calcium 9.2 Phosphorus 5.5 H Magnesium 2.3 Troponin I High Sens Diagnostic Findings Chest CTA 05/16/25 08:59 CT angio chest PE protocol CT DOSE: 371.73 mGy.cm HISTORY: Dyspnea, hypoxia. TECHNIQUE: Multiple CTA images of the chest were obtained after the intravenous administration of 112 ml Optiray. Coronal and sagittal MIPS were obtained from the axial data set and were submitted for review. All measurements were obtained according to NASCET criteria. A dose lowering technique was utilized adhering to the principles of ALARA. COMPARISON STUDY: 09/12/2022 FINDINGS: Stable left pneumonectomy with stable postoperative fluid at the left hemithorax. Stable shift of the heart and mediastinum to the left with compensatory hyperexpansion of the right lung. There is motion artifact due to difficulty breath holding. There are multiple interval scattered reticular nodular opacities measuring up to 8 mm right upper lobe series 4 image 193. No lobar consolidation or pleural effusion. No pneumothorax. No enlarged adenopathy. No pericardial effusion. There are coronary artery calcifications. No thoracic aortic dissection or aneurysm. No pulmonary embolism seen. No acute osseous findings. IMPRESSION: 1. No pulmonary embolism seen. 2. Multiple interval scattered small reticular nodular opacities throughout the right lung likely represent infectious/inflammatory etiology. Recommend follow- up chest CT in 3 months to make sure that this resolves without underlying pulmonary nodule. ACT 112: Positive. There are findings on this exam that require communication between the performing entity and the patient following Patient Test Result Information Act ([place] Act 112) guidelines. The above report was generated using voice recognition software. It may contain grammatical, syntax or spelling errors. Electronically signed by: Rubin Flores M.D. 05/16/2025 10:20 AM Chest X-Ray 05/16/25 08:59 XR chest 1V portable CLINICAL HISTORY: Dyspnea COMPARISON STUDY: 09/12/2022 FINDINGS: Stable prior left pneumonectomy with complete opacification of the left hemithorax. Stable shift of the heart and mediastinum to the left with compensatory hyperexpansion of the right lung. The right lung shows no consolidation or pleural effusion. No pneumothorax. IMPRESSION: No acute findings. ACT 112: Negative or not required by law. Electronically signed by: Rubin Flores M.D. 05/16/2025 9:18 AM PG Care Time/CCT Total # of Minutes Spent Total Time Spent with Patient: Total time spent is greater than 50% in coordination of care (as documented) at patient's floor/unit and/or counseling patient: Coding Level of Care Code 61774 SUB INP/OBS CARE 2/35MIN Diagnoses Influenza J11.1 Acute respiratory failure with hypoxia and hypercarbia J96.01; J96.02 Chronic obstructive pulmonary disease J44.9
[2025-05-17 14:58] VITALS: RESP 30
--- NOTE | 2025-05-17 19:37 | Communication Note ---
Date of Service: May 17, 2025 Patient pronounced by staff at 7:40 PM.
--- NOTE | 2025-05-17 19:38 | Discharge Summary ---
Date of Service May 17, 2025 Admission HPI Per Admitting Provider he is a 75-year-old male with significant past medical history of COPD not on any oxygen, agent orange exposure, history of lung cancer status post left pneumonectomy, hypertension, hyperlipidemia apparently has been complaining of increasing shortness of breath since this morning associated with cough and fever. He denies any chest pain and/or palpitation, does not have any abdominal pain nausea and/or vomiting. Denies any problem with urine or bowel habit. He was noted to be hypoxic and requiring initially 4 L and then ABG showed increase in CO2 and he was put on BiPAP. He was positive for swine flu and started with Tamiflu on top of supportive medications and was admitted to medical telemetry unit for continuation of care. Discharge Data Consultations 05/16/25 11:01 ED Decision to Admit Stat 05/16/25 11:38 Consult Pulmonology Routine Hospital Course (1) Acute respiratory failure with hypoxia and hypercarbia: (2) Influenza: (3) Elevated troponin: (4) GERD (gastroesophageal reflux disease): (5) Hypertension: (6) Hyperlipidemia: (7) Chronic obstructive pulmonary disease: (8) Lung cancer: Influenza A COPD exacerbation Acute Hypoxic hypercapnic respiratory failure History of lung cancer status post left pneumonectomy Patient presented to the hospital with shortness of breath for the last several days Found to be 64% in room air on admission; he was also found to have severe acute Hypoxic hypercapnic respitory failure; started on trial of BiPAP. No significant improvement noted on BiPAP overnight. Based on goals of care discussion; patient changed over to comfort care measures. Ativan, morphine as needed. BiPAP to be taken off for comfort. (Preceding documentation as per admitting/daytime provider.) 05/17, 7:40 PM Patient ceased to breathe and pronounced by staff. Total time to prepare this discharge summary was less than 10 minutes. Text document was generated using [employer] voice recognition software. It may contain grammatical or spelling errors. Kindly contact undersigned for clarification of any documentation item in question.
[2025-05-17] MEDS ORDERED: NITROGLYCERIN 0.2 MG/HR PATCH TD SCH (21:00)
== END 2025-05-17 22:36 | disposition expired | DRG 189 ==
LOC: ED 09:02 → EDINP 11:09 → SUATTDRO 11:09 → 2W 12:00